=== PATIENT | female | born 1950 | race Caucasian/White ===

== ENCOUNTER 2024-11-13 07:43 | Inpatient (IN) | payer OTHER ==
[~2024-11-13] VITALS: Ht 154.9 cm; Wt 86.9 kg
[~2024-11-13 07:43] MED LIST: ATOR20TA50 PO; LEVO137T3 PO
--- NOTE | 2024-11-13 08:05 | ECG ---
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
[2024-11-13] MEDS: ADENOSINE 6 MG/2 ML INJ IV ONE ×2 (08:06→08:34)
[2024-11-13 08:13] LABS: Basophils # (auto) 0 10 ^3/uL (0-0.2); Basophils % (auto) 0.6 % (0.0-2.0); Eosinophils # (auto) 0.1 10 ^3/uL (0-0.8); Eosinophils % (auto) 0.8 % (0.0-7.0); Hematocrit 44.3 % (36.0-46.0); Hemoglobin 14.9 g/dL (12.2-16.2); Lymphocytes # (auto) 2.1 10 ^3/uL (0.4-5.4); Lymphocytes % (auto) 26.5 % (10.0-50.0); Mean Corpuscular Hgb Conc. 33.7 g/dL (32.0-36.0); Mean Corpuscular Volume 97.9 fL (80.0-100.0); Monocytes # (auto) 0.7 10 ^3/uL (0-1.3); Monocytes % (auto) 8.8 % (0.0-12.0); Neutrophils # (auto) 4.9 10 ^3/uL (1.6-8.6); Neutrophils % (auto) 63.3 % (37.0-80.0); Nucleated Red Blood Cells % 0.1 %; Platelet Count (auto) 201 10^3/uL (140-450); Red Blood Cells 4.52 10^6/uL (4.0-5.20); Red Cell Distribution Width 14.1 % (11.8-14.3); White Blood Cell 7.8 10^3/uL (4.4-10.8)
[2024-11-13 08:26] LABS: Albumin 4.5 g/dL (3.2-4.8); Alkaline Phosphatase 115 U/L (46-116); Anion Gap 10 (5-15); Calcium 9.3 mg/dL (8.7-10.4); Carbon Dioxide 25 mmol/L (20-31); Chloride 102 mmol/L (98-107); Sodium 137 mmol/L (136-145)
[2024-11-13 08:27] LABS: Bilirubin, Total 0.5 mg/dL (0.2-1.0)
[2024-11-13] MEDS: ALBUTEROL SULF 2.5 MG/0.5ML(0.5%) NEB SOLN NEB ONE (08:27)
[2024-11-13] MEDS: IPRATROPIUM BROM 0.5 MG/2.5ML INH SOL NEB ONE (08:28)
--- NOTE | 2024-11-13 08:28 | DVH ---
CHEST RADIOGRAPH Indication: CP Technique: Single frontal view of the chest was obtained Comparison: None FINDINGS: Lines and Tubes: None Lungs: No focal consolidation. Pleura: No effusion. No pneumothorax. Cardiomediastinal contours: Unremarkable Bones: No acute osseous abnormality. IMPRESSION: No acute cardiopulmonary disease.
[2024-11-13] MEDS: dilTIAZem 25 MG/5 ML VIAL IV ONE ×2 (08:30→08:34)
[2024-11-13 08:31] LABS: Alanine Aminotransferase 18 U/L (7-40); Aspartate Aminotransferase 46 U/L (13-40); Blood Urea Nitrogen 9 mg/dL (9-23); Glucose 143 mg/dL (74-106); Potassium 4.6 mmol/L (3.5-5.1)
[2024-11-13] MEDS: guaiFENesin 200 MG/10 ML UD ONE (08:34)
[2024-11-13] MEDS: guaiFENesin 200 MG/10 ML UD PO ONE ×2 (08:34→14:48)
[2024-11-13] MEDS: SODIUM CHLORIDE 0.9% 2,000 ML IV ONE (08:57)
--- NOTE | 2024-11-13 09:10 | ED.PDOC ---
HPI Comments 73 year old female presents to the ED with a chief complaint of chest pain onset 2 days. Patient states she has been experiencing chest pain, described as a tightness sensation for the past 2 days. Patient states she has also been experiencing cough, chills, fever for the past 2 days. Upon ED arrival, O2 sat was 90%, HR 200 BP 81/39, and rates her pain 9/10. PMHx asthma, thyroid. No other symptoms or modifying factors present at this time. 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 Family History Family History: Reviewed,noncontributory to illness, No family hx of Cancer, No family hx of DM, No family hx of Heart eb, No family hx of HTN, No family hx ofKidney be, No family hx of Liver eb, No family hx of Lung eb, No family hx of Stroke Social History Smoker: Non-Smoker Alcohol: Denies ETOH Use Drugs: Denies Drug Use Lives In: Home Constitutional: reports: fever; denies: chills, diaphoresis, fatigue, malaise, sweats, weakness, others EENTM: denies: blurred vision, double vision, ear bleeding, ear discharge, ear drainage, ear pain, ear ringing, eye pain, eye redness, hearing loss, mouth pain, mouth swelling, nasal discharge, nose bleeding, nose congestion, nose pain, photophobia, tearing, throat pain, throat swelling, voice changes, others Respiratory: reports: cough; denies: hemoptysis, orthopnea, SOB at rest, shortness of breath, SOB with excertion, stridor, wheezing, others Cardiovascular: reports: chest pain; denies: dizzy spells, diaphoresis, Dyspnea on exertion, edema, irregular heart beat, left arm pain, lightheadedness, palpitations, PND, syncope, others Gastrointestinal: denies: abdomen distended, abdominal pain, blood streaked bowels, constipated, diarrhea, dysphagia, difficulty swallowing, hematemesis, melena, nausea, poor appetite, poor fluid intake, rectal bleeding, rectal pain, vomiting, others Genitourinary: denies: abnormal vagina bleeding, burning, dyspareunia, dysuria, flank pain, frequency, hematuria, incontinence, pain, , vagina discharge, urgency, others Neurological: denies: dizziness, fainting, headache, left sided numbness, left sided weakness, numbness, paresthesia, pre-existing deficit, right sided numbness, right sided weakness, seizure, speech problems, tingling, tremors, weakness, others Musculoskeletal: denies: back pain, gout, joint pain, joint swelling, muscle pain, muscle stiffness, neck pain, others Integumetry: denies: bruises, change in color, change in hair/nails, dryness, laceration, lesions, lumps, rash, wounds, others Allergic/Immunocompromised: denies: Difficulty Healing, Frequent Infections, Hives, Itching, others Hematologic/Lymphatic: denies: anemia, blood clots, easy bleeding, easy bruising, swollen glands, others Endocrine: denies: excessive hunger, excessive sweating, excessive thirst, excessive urination, flushing, intolerance to cold, intolerance to heat, une xplained weight gain, unexplained weight loss, others Psychiatric: denies: anxiety, bipolar disorder, depression, hopeless, panic disorder, schizophrenia, sleepless, suicidal, others All Other Systems: Reviewed and Negative Physical Exam General Appearance: Moderate Distress HEENT: Normal ENT Inspection, PERRL/EOMI Neck: Full Range of Motion, Non-Tender, Normal, Normal Inspection Respiratory: Chest Non-Tender, Lungs Clear, No Accessory Muscle Use, No Respiratory Distress, Normal Breath Sounds, Wheezing, Other (PATIENT WITH PAROXYSMAL COUGH) Cardiovascular: No Edema, No Murmur, Tachycardia, Other (PATIENT WITH A PAROXYSMAL ATRIAL FIBRILLATION AT A VERY HIGH RATE) Breast Exam: Deferred Gastrointestinal: No Organomegaly, Non Tender, No Pulsatile Mass, Normal Bowel Sounds, Soft Genitalia: Deferred Pelvic: Deferred Rectal: Deferred Extremities: No calf tenderness, Normal capillary refill, Normal inspection, Normal range of motion, Non-tender, No pedal edema 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 Was a procedure done?: No CP Differential Dx Differential Diagnosis: A-fib, A-Flutter, Angina, Anxiety / Panic Attack, Electrolyte Disorder, Heart Failure, Hyperthyroidism, Hyperventilation, [place], PSVT, Pulmonary Embolus, Renal Failure, Ventricular Dysrhythmia Differential Diagnosis: CHF, HTN Essential Differential Diagnosis: Angina, Costochondritis, Esophageal reflux/spasm, Myocardial Infarction, Pneumonia, Pulmonary Embolus X-Ray, Labs, Meds, VS Vital Signs Date Time Temp Pulse Resp B/P (MAP) Pulse Ox O2 Delivery O2 Flow Rate FiO2 11/13/24 16:00 99.0 69 17 112/49 (70) 96 99.0 11/13/24 16:00 96 Nasal Cannula* 2 28 11/13/24 14:00 62 17 112/48 (69) 96 11/13/24 12:44 97 11/13/24 12:00 71 17 114/50 (71) 94 11/13/24 11:00 75 17 116/46 (69) 94 11/13/24 10:30 79 17 109/49 (69) 94 11/13/24 10:15 81 17 110/49 (69) 94 11/13/24 10:00 72 17 96 Nasal Cannula* 2 28 11/13/24 10:00 85 17 115/56 (75) 94 11/13/24 09:45 96 17 123/56 (78) 94 11/13/24 09:30 92 17 111/53 (72) 94 11/13/24 09:15 156 17 114/57 (76) 94 11/13/24 09:00 157 17 113/56 (75) 94 11/13/24 08:45 159 17 72/47 (55) 94 11/13/24 08:35 98.0 155 22 90/52 (65) 94 98.0 11/13/24 08:28 17 97 Nasal Cannula* 1 24 11/13/24 08:11 98.5 200 28 81/39 (53) 90 11/13/24 08:04 197 11/13/24 07:50 202 Lab Test 11/13/24 10:53 11/13/24 08:52 11/13/24 07:54 Range/Units Troponin I High Sensitivity 389 *H 57 *H 25 </=34 ng/L White Blood Count 7.8 4.4-10.8 10^3/uL Red Blood Count 4.52 4.0-5.20 10^6/uL Hemoglobin 14.9 12.2-16.2 g/dL Hematocrit 44.3 36.0-46.0 % Mean Corpuscular Volume 97.9 80.0-100.0 fL Mean Corpuscular Hemoglobin 33.0 H 28.0-32.0 pg Mean Corpuscular Hemoglobin Concent 33.7 32.0-36.0 g/dL Red Cell Distribution Width 14.1 11.8-14.3 % Platelet Count 201 140-450 10^3/uL Mean Platelet Volume 8.8 6.9-10.8 fL Neutrophils (%) (Auto) 63.3 37.0-80.0 % Lymphocytes (%) (Auto) 26.5 10.0-50.0 % Monocytes (%) (Auto) 8.8 0.0-12.0 % Eosinophils (%) (Auto) 0.8 0.0-7.0 % Basophils (%) (Auto) 0.6 0.0-2.0 % Neutrophils # (Auto) 4.9 1.6-8.6 10 ^3/uL Lymphocytes # (Auto) 2.1 0.4-5.4 10 ^3/uL Monocytes # (Auto) 0.7 0-1.3 10 ^3/uL Eosinophils # (Auto) 0.1 0-0.8 10 ^3/uL Basophils # (Auto) 0 0-0.2 10 ^3/uL Nucleated Red Blood Cells 0.1 % D-Dimer, Quantitative 0.41 0.0-0.49 mg/L FEU Sodium Level 137 136-145 mmol/L Potassium Level 4.6 3.5-5.1 mmol/L Chloride Level 102 98-107 mmol/L Carbon Dioxide Level 25 20-31 mmol/L Anion Gap 10 5-15 Blood Urea Nitrogen 9 9-23 mg/dL Creatinine 1.13 H 0.550-1.02 mg/dL Glomerular Filtration Rate Calc 51 >90 mL/min BUN/Creatinine Ratio 8.0 L 10.0-20.0 Serum Glucose 143 H 74-106 mg/dL Hemoglobin A1c Pending Calcium Level 9.3 8.7-10.4 mg/dL Magnesium Level 1.9 1.6-2.6 mg/dL Total Bilirubin 0.5 0.2-1.0 mg/dL Aspartate Amino Transferase (AST) 46 H 13-40 U/L Alanine Aminotransferase (ALT) 18 7-40 U/L Alkaline Phosphatase 115 46-116 U/L B-Type Natriuretic Peptide Pending Total Protein 7.0 5.7-8.2 g/dL Albumin 4.5 3.2-4.8 g/dL Triglycerides Level 132 < 150 mg/dL Cholesterol Level 135 < 200 mg/dL LDL Cholesterol 62 < 100 mg/dL HDL Cholesterol 55 40-59 mg/dL Thyroid Stimulating Hormone (TSH) 3.24 0.55-4.78 uIU/mL Current Medications Medications (Trade) Dose Ordered Sig/Amita Route Start Time Stop Time Status Last Admin Albuterol (Ventolin Medneb) 2.5 mg ONCE ONCE NEB 11/13/24 08:30 11/13/24 08:31 DC 11/13/24 08:27 Ipratropium [place] (Atrovent Medneb) 0.5 mg ONCE ONCE NEB 11/13/24 08:30 11/13/24 08:31 DC 11/13/24 08:28 Guaifenesin (Robitussin Plain Liquid) 400 mg ONCE ONCE PO 11/13/24 08:30 11/13/24 08:31 DC 11/13/24 08:34 Adenosine (Adenosine) 6 mg ONCE ONCE IV 11/13/24 08:30 11/13/24 08:31 DC 11/13/24 08:06 Sodium Chloride 2,000 ml @ 1,000 mls/hr Q2H ONCE IV 11/13/24 08:45 11/13/24 10:44 DC 11/13/24 08:57 Guaifenesin (Robitussin Plain Liquid) 200 mg ONCE ONCE PO 11/13/24 14:45 11/13/24 14:46 DC 11/13/24 14:48 Aspirin 162 mg ONCE ONCE PO 11/13/24 15:00 11/13/24 15:29 DC 11/13/24 15:54 Sodium Chloride 1,000 ml @ 60 mls/hr [id number] IV 11/13/24 15:00 11/13/24 15:00 Acetaminophen (Tylenol Tablet) 650 mg Q6HP PRN PO 11/13/24 15:00 11/13/24 15:54 [place] [id number] Ph: [phone] DIAGNOSTIC IMAGING Diagnostic Imaging Report : [id number] Signed PATIENT: YELITZA DE SANTIAGOACCT: [id number] UNIT: [id number] : 1950 LOC: ER ROOM / BED: / AGE / SEX: 73 / F ADM STATUS: REG ER SERVICE 0753 ORDERING PHYSICIAN: JAGRUTI PINEDO MD PROCEDURE(s): CXRP - CHEST PORTABLE REASON: CP ORDER NUMBER(s): [id number], ACCESSION NUMBER(s): [id number] CHEST RADIOGRAPH Indication: CP Technique: Single frontal view of the chest was obtained Comparison: None FINDINGS: Lines and Tubes: None Lungs: No focal consolidation. Pleura: No effusion. No pneumothorax. Cardiomediastinal contours: Unremarkable Bones: No acute osseous abnormality. IMPRESSION: No acute cardiopulmonary disease. ATED BY: LAKESHIA AVILEZ MD DICTATED DATE/TIME: 11/13/24825 SIGNED BY: LAKESHIA AVILEZ MD SIGNED DATE/TIME: 11/13/24825 CC: X-Ray, Labs, Meds, VS Comment COURSE IN THE EMERGENCY DEPARTMENT SEVERE TACHYCARDIA AND HYPOTENSION EKG SHOWS PAROXYSMAL SVT AT 202 WITH A DIFFUSE ISCHEMIC CHANGES THE CHEST X-RAY IS NORMAL CBC NORMAL CMP GFR AT 51 WITH A BLOOD SUGAR OF 153 TSH 3.24 D-DIMER 0.41 TROPONIN 20 FIVES 57 AND 389 PATIENT WILL BE ADMITTED NON TRANSFERRABLE I SPOKE TO DR. MARCH AT [facility] AND WILL ADMIT THE PATIENT AT THIS INSTITUTION SPENT ABOUT 45 MINUTES FOR THIS PATIENT IS AT BEDSIDE Time of 1ST Reevaluation: 08:50 Reevaluation 1ST: Unchanged Time of 2ND Reevaluation: 13:39 Reevaluation 2ND: Improved Patient Education/Counseling: Diagnosis, Treatment, Prognosis Family Education/Counseling: Diagnosis, Treatment, Prognosis, No Family Present Additional Information The following tests were ordered, and results were reviewed by me: EKG -x3, CBC, CMP, TROP -x3, XY CHEST, THYROID STIMULATING HORMONE, D-DIMER I reviewed and agreed with the following test results read by other providers: XY CHEST I discussed treatment and results with medical personnel and patient Departure 1 Departure Time of Disposition: 13:41 Impression: Primary Impression: Paroxysmal atrial fibrillation Additional Impressions: Ischemic heart disease Acute coronary syndrome CKD (chronic kidney disease) stage 3, GFR 30-59 ml/min Hyperglycemia Ruled Out: Pulmonary embolism, Hyperthyroidism Disposition: ADMITTED INPATIENT Admit to: Tele Condition: Serious Critical Care Note Critical Care Time?: No Stability Stability form required: Yes Comments 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 [id number] AUTHORIZATION DONE BY DR. MARCH Unstable for transfer: Telemetry monitoring (Telemetry monitoring required) Heart Score Heart Score: Heart Score Response (Comments) Value History Highly Suspicious [address]-Deviation 2 Age >65 2 Risk Factors >3 or Hx ASHD 2 Troponin >3 x's Normal limit 2 Total 10 I personally scribed for JAGRUTI PINEDO MD ([email or web address]) on 11/13/24 at 09:10. Electronically submitted by Aurora Powell ([email or web address]). I personally scribed for JAGRUTI PINEDO MD ([email or web address]) on 11/13/24 at 09:59. Electronically submitted by Aurora Powell ([email or web address]). I personally scribed for JAGRUTI PINEDO MD ([email or web address]) on 11/13/24 at 09:59. Electronically submitted by Aurora Powell ([email or web address]). JAGRUTI PINEDO MD Nov 13, 2024 09:10
--- NOTE | 2024-11-13 09:28 | ECG ---
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
[2024-11-13 10:00] VITALS: PULSE 72; RESP 17; O2SAT 96
[2024-11-13] MEDS ORDERED: ONDANSETRON HCL 4 MG/2 ML VIAL IV PRN (15:00)
[2024-11-13] MEDS ORDERED: DOCUSATE SOD 100 MG CAP PO PRN (15:00)
[2024-11-13] MEDS: SODIUM CHLORIDE 0.9% 1,000 ML IV SCH (15:00)
[2024-11-13] MEDS ORDERED: ALBUTEROL SULF 2.5 MG/0.5ML(0.5%) NEB SOLN NEB PRN (15:00)
[2024-11-13] MEDS ORDERED: IPRATROPIUM BROM 0.5 MG/2.5ML INH SOL NEB PRN (15:00)
[2024-11-13] MEDS: ACETAMINOPHEN 325 MG TAB PO PRN (15:54)
[2024-11-13] MEDS: ASPirin 81 mg TAB PO ONE (15:54)
--- NOTE | 2024-11-13 16:14 | DVHHP2 ---
History of Present Illness Reason for Visit: Palpitations History of Present Illness The patient is a 73-year-old female with past medical history of thyroid disease and asthma presented to [facility] ED with complaint chest pain. Patient reports symptoms progressively get worse with substernal chest pain, described as tightness sensation, rating 6/10 numeric scale, nonproductive cough, chills, fever for 2 days, getting worse that prompted this visit. Patient was seen and evaluated in the ED, laboratory data shows WBC 7.6, platelets 201, sodium 137, potassium 4.6, BUN 9, creatinine 1.13, GFR 51, glucose 143, AST 46, ALT 18, troponin 389, TSH 3.24, blood pressure 81/39 trending up to 112/49, heart rate 202 trending down to 62, temperature 98.0 F, O2 saturation 94% on oxygen. Patient was given adenosine 6 mg IV, please see medication orders section in the computer. On my assessment, patient denied chest pain no dizziness, no headache no diaphoresis, currently on oxygen, no nausea, vomiting, no fever, no chills. Patient was admitted for further evaluation and medical management. Past Medical History Asthma, Thyroid Past Surgical History Hernia Repair Family History Reviewed, noncontributory to the management of this case. Past Social History The patient lives at home, denies smoking, alcohol or illicit drugs abuse. Review of Systems Constitutional: Yes: Chills; No: Fever, Sweats, Weakness, Malaise, Other Eyes: No: Pain, Vision change, Conjunctivae inflammation, Eyelid inflammation, Other, Redness ENT: No: Ear pain, Ear discharge, Nose pain, Nose discharge, Nose congestion, Mouth pain, Mouth swelling, Throat pain, Throat swelling, Other Respiratory: Cough; No: Dry, Shortness of breath, SOB with excertion, Wheezing, Hemoptysis, Pleuritic Pain, Sputum, Wheezing, Other Cardiovascular: Chest Pain, Palpitations; No: Orthopnea, Paroxysmal Noc. Dyspnea, Edema, Lt Headedness, Other Gastrointestinal: No: Nausea, Vomiting, Abdominal Pain, Diarrhea, Constipation, Melena, Hematochezia, Other Genitourinary: No Dysuria, No Frequency, No Incontinence, No Hematuria, No Retention, No Other Musculoskeletal: No: other, neck pain, shoulder pain, arm pain, back pain, hand pain, leg pain, foot pain Skin: No: Rash, Lesions, Jaundice, Bruising, Other Neurological: No: Weakness, Numbness, Incoordination, Change in speech, Confusion, Seizures, Other Allergies: Coded Allergies: Codeine (Verified Allergy, Mild, 11/13/24) Medications Current Medications Medications Dose Ordered Sig/Amita Route Start Time Stop Time Status Last Admin Dose Admin Albuterol 2.5 mg Q4HPRN PRN NEB 11/13/24 15:00 Ipratropium [place] 0.5 mg Q4HPRN PRN NEB 11/13/24 15:00 Diltiazem HCl 120 mg DAILY PO 11/14/24 10:00 Levothyroxine Sodium 25 mcg QAM@0600 PO 11/14/24 06:00 Aspirin 81 mg DAILY PO 11/14/24 10:00 Atorvastatin Calcium 20 mg HS PO 11/13/24 22:00 Sodium Chloride 1,000 ml @ 60 mls/hr [id number] IV 11/13/24 15:00 11/13/24 15:00 60 MLS/HR Ondansetron HCl 4 mg Q4HP PRN IV 11/13/24 15:00 Docusate Sodium 100 mg BIDPRN PRN PO 11/13/24 15:00 Acetaminophen 650 mg Q6HP PRN PO 11/13/24 15:00 11/13/24 15:54 650 MG Levothyroxine Sodium 112 mcg QAM@0600 PO 11/14/24 06:00 Exam Vital Signs Vital Signs Date Time Temp Pulse Resp B/P (MAP) Pulse Ox O2 Delivery O2 Flow Rate FiO2 11/13/24 16:00 99.0 69 17 112/49 (70) 96 99.0 11/13/24 16:00 Nasal Cannula* 2 28 General Appearance: Alert, Oriented X3, Cooperative, No acute distress HEENT: Atraumatic, PERRLA, EOMI, Mucous membr. moist/pink Respiratory: Clear to auscultation, Normal air movement Cardiovascular: Regular rate, Normal S1, Normal S2, No murmurs Abdominal: Normal bowel sounds, Soft, No tenderness, No hepatospenomegaly, No masses Extremities: No clubbing, No cyanosis, No edema, Normal pulses, No tenderness/swelling Skin: No rashes, No breakdown, No significant lesion Neuro: Normal speech, Normal tone, Sensation intact, Cranial nerves 3-12 NL, Reflexes 2+, Other (Generalized weakness) Psych/Mental Status: Mental status NL, Mood NL Labs/Xrays Labs Test 11/13/24 10:53 11/13/24 07:54 Range/Units Troponin I High Sensitivity 389 *H </=34 ng/L White Blood Count 7.8 4.4-10.8 10^3/uL Red Blood Count 4.52 4.0-5.20 10^6/uL Hemoglobin 14.9 12.2-16.2 g/dL Hematocrit 44.3 36.0-46.0 % Mean Corpuscular Volume 97.9 80.0-100.0 fL Mean Corpuscular Hemoglobin 33.0 H 28.0-32.0 pg Mean Corpuscular Hemoglobin Concent 33.7 32.0-36.0 g/dL Red Cell Distribution Width 14.1 11.8-14.3 % Platelet Count 201 140-450 10^3/uL Mean Platelet Volume 8.8 6.9-10.8 fL Neutrophils (%) (Auto) 63.3 37.0-80.0 % Lymphocytes (%) (Auto) 26.5 10.0-50.0 % Monocytes (%) (Auto) 8.8 0.0-12.0 % Eosinophils (%) (Auto) 0.8 0.0-7.0 % Basophils (%) (Auto) 0.6 0.0-2.0 % Neutrophils # (Auto) 4.9 1.6-8.6 10 ^3/uL Lymphocytes # (Auto) 2.1 0.4-5.4 10 ^3/uL Monocytes # (Auto) 0.7 0-1.3 10 ^3/uL Eosinophils # (Auto) 0.1 0-0.8 10 ^3/uL Basophils # (Auto) 0 0-0.2 10 ^3/uL Nucleated Red Blood Cells 0.1 % D-Dimer, Quantitative 0.41 0.0-0.49 mg/L FEU Sodium Level 137 136-145 mmol/L Potassium Level 4.6 3.5-5.1 mmol/L Chloride Level 102 98-107 mmol/L Carbon Dioxide Level 25 20-31 mmol/L Anion Gap 10 5-15 Blood Urea Nitrogen 9 9-23 mg/dL Creatinine 1.13 H 0.550-1.02 mg/dL Glomerular Filtration Rate Calc 51 >90 mL/min BUN/Creatinine Ratio 8.0 L 10.0-20.0 Serum Glucose 143 H 74-106 mg/dL Calcium Level 9.3 8.7-10.4 mg/dL Total Bilirubin 0.5 0.2-1.0 mg/dL Aspartate Amino Transferase (AST) 46 H 13-40 U/L Alanine Aminotransferase (ALT) 18 7-40 U/L Alkaline Phosphatase 115 46-116 U/L Total Protein 7.0 5.7-8.2 g/dL Albumin 4.5 3.2-4.8 g/dL Thyroid Stimulating Hormone (TSH) 3.24 0.55-4.78 uIU/mL PATIENT: COLETTE DE SANTIAGOT: [id number] UNIT: [id number] : 1950 LOC: ER ROOM / BED: / AGE / SEX: 73 / F ADM STATUS: REG ER SERVICE 0753 ORDERING PHYSICIAN: JAGURTI PINEDO MD PROCEDURE(s): CXRP - CHEST PORTABLE REASON: CP ORDER NUMBER(s): [id number], ACCESSION NUMBER(s): [id number] CHEST RADIOGRAPH Indication: CP Technique: Single frontal view of the chest was obtained Comparison: None FINDINGS: Lines and Tubes: None Lungs: No focal consolidation. Pleura: No effusion. No pneumothorax. Cardiomediastinal contours: Unremarkable Bones: No acute osseous abnormality. IMPRESSION: No acute cardiopulmonary disease. Assessment/Plan Assessment/Plan Paroxysmal atrial fibrillation Hyperglycemia Elevated troponin Ischemic heart disease Acute coronary syndrome CKD (chronic kidney disease) Plan 1. Admit to telemetry unit 2. Breathing treatment 3. Pain control management 4. Management of fluids and electrolytes 5. Consultation for Cardiology 6. Diagnostic tests chest x-ray 7. DVT prophylaxis-on aspirin 8. Repeat labs CBC, CMP in a.m. 9. Continue with current medical management 10. Treatment plan discussed with patient and RN. Patient verbalized understanding. Plan discussed with: Patient, Other (RN) My Orders Orders - RENE HEBERT DNP Procedure Category Date Status Time * Cardiology Consult CONS 11/13/24 Transmitted 14:54 Albuterol Medneb PHA 11/13/24 In Process (Ventolin Medneb) 15:00 Ipratropium Medneb PHA 11/13/24 In Process (Atrovent Medneb) 15:00 Diltiazem Er Capsule PHA 11/14/24 In Process (Cardizem Er Capsul 10:00 Levothyroxine Tablet PHA 11/14/24 In Process (Synthroid Tablet) 06:00 Aspirin Tablet PHA 11/14/24 In Process 10:00 Atorvastatin (Lipitor) PHA 11/13/24 In Process 22:00 Troponin-I Hs LAB 11/13/24 Logged 16:00 Allergies ANGELI 11/13/24 In Process 14:54 Code Status CODE 11/13/24 Transmitted 14:54 Sodium Chloride 0.9% PHA 11/13/24 In Process 15:00 Oxygen Per Hour RT 11/13/24 Transmitted 14:54 Ondansetron Hcl PHA 11/13/24 In Process (Zofran) 15:00 Docusate Sodium PHA 11/13/24 In Process Capsule (Colace 15:00 Fall Risk Precautions ANGELI 11/13/[address] 14:54 Complete Blood Count LAB 11/14/24 Verified 04:00 Comprehensive LAB 11/14/24 Verified Metabolic Panel 04:00 Cardiac DIET 11/13/24 Transmitted Diet-2gna,Lofat,Lochol Dinner Condition: Serious ANGELI 11/13/24 In Process 14:54 Acetaminophen Tablet PHA 11/13/24 In Process (Tylenol Tablet) 15:00 Sequential ANGELI 11/13/24 In Process Compression Device Levothyroxine Tablet PHA 11/14/24 In Process (Synthroid Tablet) 06:00 Problem List: (1) Paroxysmal atrial fibrillation (2) Acute coronary syndrome (3) Ischemic heart disease (4) Hyperglycemia (5) Elevated troponin (6) Chronic kidney disease (CKD) Date of Service: Nov 13, 2024 Billing Provider: RENE HEBERT DNP Common Visit Codes: [id number] INP/OBS CARE (HIGH) RENE HEBERT DNP Nov 13, 2024 16:14
[2024-11-13] MEDS ORDERED: MORPHINE SULFATE INJ 2 MG/ml SYRG IV PRN (16:15)
[2024-11-13] MEDS ORDERED: NITROGLYCERIN 0.4 MG SL TAB SL PRN (16:15)
--- NOTE | 2024-11-13 17:20 | DVHINCON2 ---
Date Seen: Nov 13, 2024 Referring Physician JEANNETTE Pizarro Reason for Consultation Palpitations History of Present Illness This is a pleasant 73 year old female who presented to the emergency room with a chief complaint of chest pain for two days. Patient reports she developed a persistent nonproductive cough which prompted her to intake a couple of cough drops and soon after developing chest pain described as substernal, tightness like, nonradiating, intermittent, and associated with some dizziness. She called [facility] who advised her to call poison control. Given persistence of symptoms she presented to the emergency room for further evaluation. Upon arrival she underwent a 12-lead electrocardiogram revealing a supraventricular tachycardia rhythm with a rate at 202 bpm and an associated systolic blood pressure in the 80s mmHg. She was treated with adenosine 6 mg IV x1 with successful transition into a sinus rhythm. Post conversion a 12-lead electrocardiogram revealed a sinus rhythm with an associated right bundle branch block and ST segment depression to lead III and AVF. She denies any further cardiac symptoms. Family history includes mother with a permanent pacemaker. Significant medical history includes total thyroidectomy in 2003, dyslipidemia, asthma, and obesity. Past Medical History Past medical history reviewed. No other significant than mentioned above. Past Surgical History Total thyroidectomy in 2003 Hernia repair Family History Family history reviewed. Mother with permanent pacemaker. Social History Denies the use of illicit drugs, alcohol, or tobacco use. Allergies: Coded Allergies: Codeine (Verified Allergy, Mild, 11/13/24) Home Meds Home medications reviewed. Current Medications Current Medications Medications (Trade) Dose Ordered Sig/Amita Route PRN Reason Start Time Stop Time Status Last Admin Albuterol (Ventolin Medneb) 2.5 mg Q4HPRN PRN NEB SHORTNESS OF BREATH 11/13/24 15:00 Ipratropium [place] (Atrovent Medneb) 0.5 mg Q4HPRN PRN NEB SHORTNESS OF BREATH 11/13/24 15:00 Diltiazem HCl (Cardizem ER Capsule) 120 mg DAILY PO 11/14/24 10:00 Levothyroxine Sodium (Synthroid Tablet) 25 mcg QAM@0600 PO 11/14/24 06:00 Aspirin 81 mg DAILY PO 11/14/24 10:00 Atorvastatin Calcium (Lipitor) 20 mg HS PO 11/13/24 22:00 Sodium Chloride 1,000 ml @ 60 mls/hr [id number] IV 11/13/24 15:00 11/13/24 15:00 Ondansetron HCl (Zofran) 4 mg Q4HP PRN IV NAUSEA / VOMITING 11/13/24 15:00 Docusate Sodium (Colace Capsule) 100 mg BIDPRN PRN PO FOR CONSTIPATION 11/13/24 15:00 Acetaminophen (Tylenol Tablet) 650 mg Q6HP PRN PO PAIN SCALE 1-3 OR TEMP>100.4 11/13/24 15:00 11/13/24 15:54 Levothyroxine Sodium (Synthroid Tablet) 112 mcg QAM@0600 PO 11/14/24 06:00 Nitroglycerin (Ntrostat Sublingual) 0.4 mg Q5MINP PRN SL FOR CHEST PAIN 11/13/24 16:15 Morphine Sulfate 2 mg Q30M PRN IV FOR CHEST PAIN 11/13/24 16:15 Hold Enoxaparin Sodium (Lovenox) 40 mg DAILY SC 11/14/24 10:00 UNV Review of Systems Constitutional: No symptom reported Ears, Nose, & Throat: No symptom reported Eyes: No symptom reported Neurological: Dizziness Pulmonary/Respiratory: Nonproductive cough Cardiovascular: Chest pain Gastrointestinal: No symptom reported Genitourinary: No symptom reported Musculoskeletal: No symptom reported Skin: No symptom reported Psychiatric: No symptom reported Endocrine: No symptom reported Hemotologic/Lymphatic: No symptom reported Vital Signs Vital Signs Date Time Temp Pulse Resp B/P (MAP) Pulse Ox O2 Delivery O2 Flow Rate FiO2 11/13/24 16:00 99.0 69 17 112/49 (70) 96 99.0 11/13/24 16:00 Nasal Cannula* 2 28 Physical Exam General Appearance: Cooperative. Well developed. Obese. In no acute distress Head Exam: Normal inspection Neck Exam: Normal inspection. Non-tender. Normal alignment Pulmonary/Respiratory: Chest non-tender. Clear bilateral breath sounds Cardiovascular/Chest: Regular rate and rhythm. S1, S2. Sinus rhythm with RBBB and ST depression to lead three and AVF. No murmurs. No JVD. Peripheral Pulses: 2+ Radial (R). 2+ Radial (L). 2+ Pedal (R). 2+ Pedal (L) Abdominal Exam: Normal bowel sounds. Soft. Nontender. No hepatospenomegaly. No masses Ankle Exam: Negative ankle edema Lower extremities: Negative lower extremity edema Neuro/Mental Status: A&O x4. Coherent Thoughts/Psych: Normal thought pattern. Appropriate mood and affect. Good roselyn gement and insight Appearance: In no acute distress Skin Exam: Normal inspection. Normal color. Warm. Dry Labs/Diagnostic Data Labs Test 11/13/24 10:53 11/13/24 07:54 Range/Units Troponin I High Sensitivity 389 *H </=34 ng/L White Blood Count 7.8 4.4-10.8 10^3/uL Red Blood Count 4.52 4.0-5.20 10^6/uL Hemoglobin 14.9 12.2-16.2 g/dL Hematocrit 44.3 36.0-46.0 % Mean Corpuscular Volume 97.9 80.0-100.0 fL Mean Corpuscular Hemoglobin 33.0 H 28.0-32.0 pg Mean Corpuscular Hemoglobin Concent 33.7 32.0-36.0 g/dL Red Cell Distribution Width 14.1 11.8-14.3 % Platelet Count 201 140-450 10^3/uL Mean Platelet Volume 8.8 6.9-10.8 fL Neutrophils (%) (Auto) 63.3 37.0-80.0 % Lymphocytes (%) (Auto) 26.5 10.0-50.0 % Monocytes (%) (Auto) 8.8 0.0-12.0 % Eosinophils (%) (Auto) 0.8 0.0-7.0 % Basophils (%) (Auto) 0.6 0.0-2.0 % Neutrophils # (Auto) 4.9 1.6-8.6 10 ^3/uL Lymphocytes # (Auto) 2.1 0.4-5.4 10 ^3/uL Monocytes # (Auto) 0.7 0-1.3 10 ^3/uL Eosinophils # (Auto) 0.1 0-0.8 10 ^3/uL Basophils # (Auto) 0 0-0.2 10 ^3/uL Nucleated Red Blood Cells 0.1 % D-Dimer, Quantitative 0.41 0.0-0.49 mg/L FEU Sodium Level 137 136-145 mmol/L Potassium Level 4.6 3.5-5.1 mmol/L Chloride Level 102 98-107 mmol/L Carbon Dioxide Level 25 20-31 mmol/L Anion Gap 10 5-15 Blood Urea Nitrogen 9 9-23 mg/dL Creatinine 1.13 H 0.550-1.02 mg/dL Glomerular Filtration Rate Calc 51 >90 mL/min BUN/Creatinine Ratio 8.0 L 10.0-20.0 Serum Glucose 143 H 74-106 mg/dL Calcium Level 9.3 8.7-10.4 mg/dL Total Bilirubin 0.5 0.2-1.0 mg/dL Aspartate Amino Transferase (AST) 46 H 13-40 U/L Alanine Aminotransferase (ALT) 18 7-40 U/L Alkaline Phosphatase 115 46-116 U/L Total Protein 7.0 5.7-8.2 g/dL Albumin 4.5 3.2-4.8 g/dL Thyroid Stimulating Hormone (TSH) 3.24 0.55-4.78 uIU/mL Assessment Non-ST elevation Myocardial Infarction, questionable Type I Supraventricular tachycardia s/p chemical cardioversion Rule out structural heart disease/coronary artery disease Hx of total thyroidectomy Dyslipidemia Asthma Obesity Plan/Recommendation (Dr. Reyes) The patient with supraventricular tachycardia and successful chemical cardioversion will undergo a transthoracic echocardiogram to evaluate cardiac function. Tentatively scheduled for a Cardiolite stress test in the setting of negative influenza/COVID 19 tests. In the meantime, initiate metoprolol XL, single-antiplatelet therapy, lipid-lowering agent, and therapeutic Lovenox given trending troponin levels. TSH levels WNL. Mg level pending at this time. Monitor ECG changes closely and notify. Thank you for allowing us to participate in this patient's care. Please call if you have any questions or concerns. This medical document was created using an electronic medical record system with voice recognition software and computerized dictation system. Although this document has been carefully reviewed, there might still be some phonetic and typographical errors. Occasional wrong-word or ``sound-alike substitutions may have occurred due to the inherent limitations of voice recognition software. These areas are purely typographical due to imperfections of the software programs and do not reflect any compromise in the patient's medical care. Please read the chart carefully and recognize, using context, where these substitutions have occurred. Plan discussed with: Patient, Other NYHA Physical activity limitations: NA Date of Service: Nov 13, 2024 Billing Provider: JOSE DALTON Cardiology Common Codes: [id number] INP/OBS CARE (High) JOSE DALTON Nov 13, 2024 17:20
[2024-11-13 17:37] LABS: Magnesium 1.9 mg/dL (1.6-2.6)
[2024-11-13] MEDS: ENOXAPARIN SOD 40 MG/0.4 ML SYRINGE SC ONE (17:38)
[2024-11-13 21:17] LABS: Rapid Influenza A Negative (Negative); Rapid Influenza B Negative (Negative)
[2024-11-13 21:23] LABS: COVID19 ANTIGEN SOFIA FIA POSITIVE (NEGATIVE)
[2024-11-13 21:38] VITALS: O2SAT 95
[2024-11-13] MEDS: ATORVASTATIN 20 MG TAB PO SCH (22:06)
[2024-11-13] MEDS: ENOXAPARIN SOD 100 MG/1 ML SYRINGE SC SCH (22:06)
[2024-11-13 22:18] VITALS: BP 119/47; PULSE 61; RESP 18; TEMP 99; O2SAT 95
[2024-11-13] MEDS ORDERED: HEPARIN DRIP/D5W 100UNITS/ML 250 ML IV SCH (22:30)
[2024-11-13 23:00] LABS: INR 1.25 (0.9-1.15); Partial Thromboplastin Time 36.5 SEC (24.5-34.5)
[2024-11-13 23:02] VITALS: BP 116/82; PULSE 63; RESP 16; RESP 18; TEMP 98.1; O2SAT 95
[2024-11-14] VITALS (9 sets, daily range): BP systolic 108–138; BP diastolic 51–64; PULSE 53–74; RESP 18–20; TEMP 98.5–98.9; O2SAT 91–98
[2024-11-14] MEDS: guaiFENesin-DM 100/10mg/5ml SYR PO PRN (00:41)
[2024-11-14] MEDS: fentaNYL Drip 2500mCg/250mlNS 250 ML IV ONE (03:09)
[2024-11-14] MEDS: MIDAZOLAM DRIP 50 mg/50mL 50 ML IV ONE (03:09)
[2024-11-14] MEDS: NOREPINEPHRINE 8 MG/250ML KIT 250 ML IV ONE (03:09)
[2024-11-14] MEDS: LEVOTHYROXINE SODIUM 25 MCG TAB PO SCH (06:00)
[2024-11-14] MEDS: LEVOTHYROXINE SODIUM 112 MCG TAB PO SCH (06:00)
--- NOTE | 2024-11-14 07:57 | DVHPN2 ---
Consult Progress Note Date Seen: Nov 14, 2024 Subjective Review of Systems: CVS:Normal, RESPIRATORY:Abnormal, NEURO:Normal Other Systems: Denies any active cardiac complains. C/o non-productive cough Objective vital signs Vital Sign Date Time Temp Pulse Resp B/P (MAP) Pulse Ox O2 Delivery O2 Flow Rate FiO2 11/14/24 05:00 98.7 62 19 130/57 (81) 91 98.7 11/13/24 23:02 Nasal Cannula* 2 28 Total Intake and Output 11/13/24 11/13/24 11/14/24 15:00 23:00 07:00 Intake Total 2000 ml 180 ml 0 ml Output Total 850 ml Balance 2000 ml 180 ml -850 ml medications Current Medications Medications Dose Ordered Sig/Amita Route Start Time Stop Time Status Last Admin Dose Admin Albuterol 2.5 mg Q4HPRN PRN NEB 11/13/24 15:00 Ipratropium [place] 0.5 mg Q4HPRN PRN NEB 11/13/24 15:00 Levothyroxine Sodium 25 mcg QAM@0600 PO 11/14/24 06:00 Aspirin 81 mg DAILY PO 11/14/24 10:00 Atorvastatin Calcium 20 mg HS PO 11/13/24 22:00 11/13/24 22:06 20 MG Sodium Chloride 1,000 ml @ 60 mls/hr [id number] IV 11/13/24 15:00 11/13/24 15:00 60 MLS/HR Ondansetron HCl 4 mg Q4HP PRN IV 11/13/24 15:00 Docusate Sodium 100 mg BIDPRN PRN PO 11/13/24 15:00 Acetaminophen 650 mg Q6HP PRN PO 11/13/24 15:00 11/13/24 15:54 650 MG Levothyroxine Sodium 112 mcg QAM@0600 PO 11/14/24 06:00 Nitroglycerin 0.4 mg Q5MINP PRN SL 11/13/24 16:15 Morphine Sulfate 2 mg Q30M PRN IV 11/13/24 16:15 Hold Enoxaparin Sodium 80 mg Q12HR SC 11/13/24 22:00 11/13/24 22:06 80 MG Guaifenesin/ Dextromethorphan 10 ml Q6HR PRN PO 11/14/24 00:15 11/14/24 00:41 10 ML Examination: LUNGS:Normal, CVS:Normal (NSR), NEURO:Normal laboratory and microbiology Laboratory Tests 11/13/24 07:54 Test 11/13/24 07:54 Range/Units Serum Glucose 143 H 74-106 mg/dL Problem List/Assessment/Plan Problem List/Assessment/Plan Non-ST elevation Myocardial Infarction, questionable Type I Supraventricular tachycardia s/p chemical cardioversion Rule out structural heart disease/coronary artery disease Active COVID-19 virus Hx of total thyroidectomy Pre-diabetes, newly diagnosed Dyslipidemia Asthma Obesity Plan/Recommendation (Dr. Guo) The patient with supraventricular tachycardia and successful chemical cardioversion will undergo a transthoracic echocardiogram to evaluate cardiac function. Cardiolite stress test cancelled given active COVID-19. Continue metoprolol XL, single-antiplatelet therapy, lipid-lowering agent, and therapeutic Lovenox given trending troponin levels. TSH levels WNL. Morning blood levels pending at this time. Monitor ECG changes closely and notify. Thank you for allowing us to participate in this patient's care. Please call if you have any questions or concerns. This medical document was created using an electronic medical record system with voice recognition software and computerized dictation system. Although this document has been carefully reviewed, there might still be some phonetic and typographical errors. Occasional wrong-word or ``sound-alike substitutions may have occurred due to the inherent limitations of voice recognition software. These areas are purely typographical due to imperfections of the software programs and do not reflect any compromise in the patient's medical care. Please read the chart carefully and recognize, using context, where these substitutions have occurred. Plan discussed with: Patient, Other Date of Service: Nov 14, 2024 Billing Provider: JOSE DALTON Cardiology Common Codes: [id number] [facility] JOSE DALTON Nov 14, 2024 07:57
[2024-11-14] MEDS ORDERED: guaiFENesin 200 MG/10 ML UD GT PRN (08:00)
[2024-11-14] MEDS ORDERED: guaiFENesin 200 MG/10 ML UD GT ONE (08:00)
[2024-11-14] MEDS: METOPROLOL SUCCINATE XL 50 MG TAB PO SCH (09:50)
[2024-11-14] MEDS: ASPirin 81 mg TAB PO SCH (09:52)
[2024-11-14] MEDS ORDERED: ENOXAPARIN SOD 40 MG/0.4 ML SYRINGE SC SCH (10:00)
[2024-11-14] MEDS ORDERED: dilTIAZem 120MG ER CAP PO SCH (10:00)
--- NOTE | 2024-11-14 10:08 | DVHPN2 ---
Progress Note Date Seen: Nov 14, 2024 Medical Necessity Reason Pt with a Central, PICC or Fol: No Subjective Patient reports: No new complaints Review of Systems: HEENT:Normal, CVS:Normal, RESPIRATORY:Normal, GI:Normal, :Normal, MSK:Normal, NEURO:Normal Objective vital signs Vital Sign Date Time Temp Pulse Resp B/P (MAP) Pulse Ox O2 Delivery O2 Flow Rate FiO2 11/14/24 09:50 60 138/57 11/14/24 09:02 98.6 18 92 98.6 11/13/24 23:02 Nasal Cannula* 2 28 Total Intake and Output 11/13/24 11/13/24 11/14/24 15:00 23:00 07:00 Intake Total 2000 ml 180 ml 0 ml Output Total 850 ml Balance 2000 ml 180 ml -850 ml medications Current Medications Medications Dose Ordered Sig/Amita Route Start Time Stop Time Status Last Admin Dose Admin Albuterol 2.5 mg Q4HPRN PRN NEB 11/13/24 15:00 Ipratropium [place] 0.5 mg Q4HPRN PRN NEB 11/13/24 15:00 Levothyroxine Sodium 25 mcg QAM@0600 PO 11/14/24 06:00 Aspirin 81 mg DAILY PO 11/14/24 10:00 11/14/24 09:52 81 MG Atorvastatin Calcium 20 mg HS PO 11/13/24 22:00 11/13/24 22:06 20 MG Sodium Chloride 1,000 ml @ 60 mls/hr [id number] IV 11/13/24 15:00 11/13/24 15:00 60 MLS/HR Ondansetron HCl 4 mg Q4HP PRN IV 11/13/24 15:00 Docusate Sodium 100 mg BIDPRN PRN PO 11/13/24 15:00 Acetaminophen 650 mg Q6HP PRN PO 11/13/24 15:00 11/13/24 15:54 650 MG Levothyroxine Sodium 112 mcg QAM@0600 PO 11/14/24 06:00 Nitroglycerin 0.4 mg Q5MINP PRN SL 11/13/24 16:15 Morphine Sulfate 2 mg Q30M PRN IV 11/13/24 16:15 Hold Enoxaparin Sodium 80 mg Q12HR SC 11/13/24 22:00 11/14/24 09:56 80 MG Guaifenesin/ Dextromethorphan 10 ml Q6HR PRN PO 11/14/24 00:15 11/14/24 00:41 10 ML Metoprolol Succinate 25 mg DAILY PO 11/14/24 10:00 11/14/24 09:50 25 MG Examination: GENERAL:Normal, HEENT:Normal, NECK:Normal, LUNGS:Normal, CVS:Normal, ABDOMEN:Normal, MSK:Normal, SKIN:Normal, NEURO:Normal, :Normal laboratory and microbiology Laboratory Tests 11/13/24 07:54 Test 11/13/24 07:54 Range/Units Serum Glucose 143 H 74-106 mg/dL Problem List/Assessment/Plan Problem List/Assessment/Plan #1 covid 19 pneumonia: cont meds #2 nstemi: cardio eval, echo #3 asthma #4 s/p svt #5 obesity #6 hypothyroidism s/p surgery: resume med advance care planning- full code- time spent 19 mins Plan discussed with: Patient My Orders My Orders Orders - SUSY ELLSWORTH MD Procedure Category Date Status Time Urinalysis LAB 11/14/24 Uncollected 10:03 Methylprednisolone PHA 11/14/24 Transmitted Sod Succ (Solu Medrol 10:15 Methylprednisolone PHA 11/14/24 Transmitted Sod Succ (Solu Medrol 22:00 Azithromycin 500mg/ PHA 11/15/24 Transmitted 250ml (Zithromax 50 10:00 Azithromycin 500mg/ PHA 11/14/24 Transmitted 250ml (Zithromax 50 10:15 Basic Metabolic Panel LAB 11/15/24 Verified 06:00 Complete Blood Count LAB 11/15/24 Verified 06:00 Magnesium LAB 11/15/24 Verified 05:00 Date of Service: Nov 14, 2024 Billing Provider: SUSY ELLSWORTH MD Common Visit Codes: [id number] INP/OBS CARE(HIGH) Secondary Visit Codes: [id number] CARE PLAN 30 MINUTES SUSY ELLSWORTH MD Nov 14, 2024 10:08
[2024-11-14 11:30] LABS: Alanine Aminotransferase 13 U/L (7-40); Alkaline Phosphatase 86 U/L (46-116); Anion Gap 6 (5-15); BUN/Creatinine Ratio 10.9 (10.0-20.0); Carbon Dioxide 27 mmol/L (20-31); Glucose 100 mg/dL (74-106); Potassium 3.8 mmol/L (3.5-5.1); Sodium 141 mmol/L (136-145)
[2024-11-14 11:31] LABS: Albumin 3.6 g/dL (3.2-4.8); Aspartate Aminotransferase 24 U/L (13-40)
[2024-11-14 11:32] LABS: Bilirubin, Total 0.4 mg/dL (0.2-1.0)
[2024-11-14 11:34] LABS: Blood Urea Nitrogen 7 mg/dL (9-23); Calcium 8.6 mg/dL (8.7-10.4); Chloride 108 mmol/L (98-107); Total Protein 5.6 g/dL (5.7-8.2)
[2024-11-14] MEDS: AZITHROMYCIN 500MG/ 250ML 250 ML IV ONE (12:01)
[2024-11-14] MEDS: methylPREDNISolone SOD SUCC 40 MG/ML VL IV ONE (12:01)
[2024-11-14 12:43] LABS: Basophils # (auto) 0 10 ^3/uL (0-0.2); Basophils % (auto) 0.6 % (0.0-2.0); Eosinophils # (auto) 0.1 10 ^3/uL (0-0.8); Eosinophils % (auto) 2.3 % (0.0-7.0); Hematocrit 36.8 % (36.0-46.0); Hemoglobin 12.4 g/dL (12.2-16.2); Lymphocytes % (auto) 20.1 % (10.0-50.0); Mean Corpuscular Hgb Conc. 33.8 g/dL (32.0-36.0); Mean Corpuscular Volume 97.7 fL (80.0-100.0); Monocytes # (auto) 0.4 10 ^3/uL (0-1.3); Monocytes % (auto) 8.9 % (0.0-12.0); Neutrophils # (auto) 3.3 10 ^3/uL (1.6-8.6); Neutrophils % (auto) 68.1 % (37.0-80.0); Nucleated Red Blood Cells % 0.2 %; Platelet Count (auto) 159 10^3/uL (140-450); Red Blood Cells 3.76 10^6/uL (4.0-5.20); Red Cell Distribution Width 13.7 % (11.8-14.3); White Blood Cell 4.8 10^3/uL (4.4-10.8)
--- NOTE | 2024-11-14 13:04 | DVHSR ---
APPROVED REPORT EXAM: Two-dimensional and M-mode echocardiogram with Doppler and color Doppler. Blood Pressure: 130/57 mmHg INDICATION SVT RISK FACTORS Height: 61, Weight: 185 DIMENSIONS LVDd4.3 (3.8-5.7cm)LA (2D)4.1 (1.9-4.0cm)Aortic Root3.7 (2.0-3.7cm) LVDs3.1 (2.5-4.0cm)LA (MM) (1.9-4.0cm)Aortic Cusp Exc1.9 (1.5-2.0cm) EF (%) 55.0 (55-70%)Rt. Atrium4.3 (1.9-4.0cm)Asc. Aorta cm IVSd1.2 (0.7-1.1cm)RV (D) (1.8-2.4cm) PWd1.2 (0.7-1.1cm) Mitral Valve MitralMitral Stenosis E wave1.05m/sMV Mean GR.mmHg A wave1.02m/sMV Peak GR.98mmHg E/A ratio1.02D MVAcm2 DECEL [id number] 1/2 Qows23tw IVRTmsDop MVA3.08cm2 Aortic Valve Aortic ValveAortic Stenosis V11.44m/Joao Mean GR.6mmHg V21.81m/Joao Peak GR.13mmHg LVOT Diameter1.8 (1.8-2.4cm)Doppler AVA2.02cm2 AI P 1/2 Xqem239.36ms Pulmonic Valve V20.99m/s Tricuspid Valve TR Velocity2.30m/s [id number] Conclusion lvef 60% by vsual estimate milld LVH normal rv function mild to moderate left atrium enlarged no severe valve abnormalities noted
[2024-11-14 13:15] LABS: Urine Bacteria None Seen /hpf (None Seen)
[2024-11-14 13:26] LABS: Urine Blood 3+ /uL (Negative); Urine Clarity Turbid (Clear); Urine Color Colorless (Yellow); Urine Mucus FEW (None Seen); Urine Protein, UAD TRACE (Negative); Urine Specific Gravity 1.014 (1.001-1.035); Urine Squamous Epithelial Cell FEW /hpf (<5); Urine Urobilinogen Normal (Negative); Urine WBC 9 /HPF (0-5); Urine pH 5.5 (5.0-9.0)
[2024-11-14] MEDS: methylPREDNISolone SOD SUCC 40 MG/ML VL IV SCH (21:28)
[2024-11-15 01:00] VITALS: BP 127/56; PULSE 47; RESP 18; TEMP 98.1; O2SAT 91
[2024-11-15 05:00] VITALS: BP 115/39; PULSE 46; RESP 16; TEMP 98.3; O2SAT 94
[2024-11-15 07:15] LABS: Anion Gap 5 (5-15); Carbon Dioxide 27 mmol/L (20-31); Potassium 3.9 mmol/L (3.5-5.1); Sodium 140 mmol/L (136-145)
[2024-11-15 07:16] LABS: Calcium 8.7 mg/dL (8.7-10.4)
[2024-11-15 07:21] LABS: Blood Urea Nitrogen 13 mg/dL (9-23)
[2024-11-15 07:24] LABS: Chloride 108 mmol/L (98-107); Glucose 125 mg/dL (74-106)
[2024-11-15 07:26] LABS: Basophils # (auto) 0 10 ^3/uL (0-0.2); Basophils % (auto) 0.1 % (0.0-2.0); Eosinophils # (auto) 0 10 ^3/uL (0-0.8); Hematocrit 37.4 % (36.0-46.0); Hemoglobin 12.8 g/dL (12.2-16.2); Lymphocytes % (auto) 23.7 % (10.0-50.0); Mean Corpuscular Hgb Conc. 34.3 g/dL (32.0-36.0); Mean Corpuscular Volume 96.1 fL (80.0-100.0); Monocytes # (auto) 0.2 10 ^3/uL (0-1.3); Monocytes % (auto) 4.4 % (0.0-12.0); Neutrophils # (auto) 3.1 10 ^3/uL (1.6-8.6); Neutrophils % (auto) 71.8 % (37.0-80.0); Platelet Count (auto) 155 10^3/uL (140-450); Red Blood Cells 3.89 10^6/uL (4.0-5.20); Red Cell Distribution Width 13.5 % (11.8-14.3); White Blood Cell 4.4 10^3/uL (4.4-10.8)
--- NOTE | 2024-11-15 07:43 | ECG ---
[facility] Test Date: 2024-11-15 Test Time: 04:48:11 Pat Name: YELITZA DE SANTIAGO Department: Respiratoy Room: 0201T A Gender: F Manager Money: : 1950 Requested By: SUSY ELLSWORTH Order Number: [id number] Reading MD: Judith Reyes Measurements Intervals [place] Rate: 47 P: 42 NH: 158 QRS: 66 QRSD: 96 T: 37 QT: 492 QTc: 435 Interpretive Statements Sinus bradycardia Electronically Signed On 11-15-2024 10:34:34 PST by Judith Reyes Please click the below link to view image of tracing.
--- NOTE | 2024-11-15 07:58 | DVHPN2 ---
Consult Progress Note Date Seen: Nov 15, 2024 Subjective Review of Systems: CVS:Normal, RESPIRATORY:Abnormal, NEURO:Normal Other Systems: C/o non-productive cough Objective vital signs Vital Sign Date Time Temp Pulse Resp B/P (MAP) Pulse Ox O2 Delivery O2 Flow Rate FiO2 11/15/24 05:00 98.3 46 16 115/39 (64) 94 98.3 11/14/24 20:00 Room Air* 0 21 Total Intake and Output 11/14/24 11/14/24 11/15/24 15:00 23:00 07:00 Intake Total 460 ml 1230 ml 200 ml Output Total 2650 ml 1000 ml Balance 460 ml -1420 ml -800 ml medications Current Medications Medications Dose Ordered Sig/Amita Route Start Time Stop Time Status Last Admin Dose Admin Albuterol 2.5 mg Q4HPRN PRN NEB 11/13/24 15:00 Cancel Ipratropium [place] 0.5 mg Q4HPRN PRN NEB 11/13/24 15:00 Cancel Levothyroxine Sodium 25 mcg QAM@0600 PO 11/14/24 06:00 11/15/24 05:01 25 MCG Aspirin 81 mg DAILY PO 11/14/24 10:00 11/14/24 09:52 81 MG Atorvastatin Calcium 20 mg HS PO 11/13/24 22:00 11/14/24 21:29 20 MG Sodium Chloride 1,000 ml @ 60 mls/hr [id number] IV 11/13/24 15:00 11/14/24 07:40 60 MLS/HR Ondansetron HCl 4 mg Q4HP PRN IV 11/13/24 15:00 Docusate Sodium 100 mg BIDPRN PRN PO 11/13/24 15:00 Acetaminophen 650 mg Q6HP PRN PO 11/13/24 15:00 11/13/24 15:54 650 MG Levothyroxine Sodium 112 mcg QAM@0600 PO 11/14/24 06:00 11/15/24 05:01 112 MCG Nitroglycerin 0.4 mg Q5MINP PRN SL 11/13/24 16:15 Morphine Sulfate 2 mg Q30M PRN IV 11/13/24 16:15 Hold Guaifenesin/ Dextromethorphan 10 ml Q6HR PRN PO 11/14/24 00:15 11/14/24 21:28 10 ML Metoprolol Succinate 25 mg DAILY PO 11/14/24 10:00 11/14/24 09:50 25 MG Methylprednisolone Sodium Succinate 20 mg BID IV 11/14/24 22:00 11/14/24 21:28 20 MG Azithromycin 250 ml @ 125 mls/hr DAILY IV 11/15/24 10:00 Enoxaparin Sodium 40 mg DAILY SC 11/15/24 10:00 Examination: LUNGS:Normal, CVS:Normal (Sinus bradycardia in the 40s bpm, asymptomatic), NEURO:Normal laboratory and microbiology Laboratory Tests 11/15/24 06:17 Test 11/15/24 06:17 Range/Units Serum Glucose 125 H 74-106 mg/dL Problem List/Assessment/Plan Problem List/Assessment/Plan Non-ST elevation Myocardial Infarction, questionable Type I Supraventricular tachycardia s/p chemical cardioversion Beta-lucia induced bradycardia, asymptomatic Rule out coronary artery disease Active COVID-19 virus Hx of total thyroidectomy Pre-diabetes, newly diagnosed Dyslipidemia Asthma Obesity Plan/Recommendation (Dr. Reyes) The patient with supraventricular tachycardia and successful chemical cardioversion underwent a transthoracic echocardiogram revealing an EF of 60% with mild to moderate left atrial enlargement. Continue metoprolol XL (reduced dose) with parameters for HR >60 bpm given sinus bradycardia, single- antiplatelet therapy, and lipid-lowering agent. TSH levels WNL. DVT/VTE prophylaxis. Consider an outpatient stress test to rule out coronary artery disease. Follow-up with Cardiology at [facility] within 3-4 weeks post- discharge. There is no further cardiac work-up indicated at this time. Kindly call if in need to re-consult. Thank you for allowing us to participate in this patient's care. This medical document was created using an electronic medical record system with voice recognition software and computerized dictation system. Although this document has been carefully reviewed, there might still be some phonetic and typographical errors. Occasional wrong-word or ``sound-alike substitutions may have occurred due to the inherent limitations of voice recognition software. These areas are purely typographical due to imperfections of the software programs and do not reflect any compromise in the patient's medical care. Please read the chart carefully and recognize, using context, where these substitutions have occurred. Plan discussed with: Patient, Other Date of Service: Nov 15, 2024 Billing Provider: JOSE DALTON Cardiology Common Codes: [id number] HOSP CARE(High JOSE DALTON Nov 15, 2024 07:58
[2024-11-15 08:00] VITALS: PULSE 44; RESP 18; O2SAT 95
[2024-11-15 09:19] VITALS: BP 135/59; RESP 18; TEMP 97.6; O2SAT 95
--- NOTE | 2024-11-15 09:47 | DVHDS2 ---
Discharge Summary Date of Admission Nov 13, 2024 at 16:13 Date of Discharge: Nov 15, 2024 Labs/Diagnostic Data: Laboratory Results Test 11/15/24 06:17 11/14/24 11:10 11/14/24 10:28 11/13/24 22:28 White Blood Count 4.4 10^3/uL (4.4-10.8) Red Blood Count 3.89 10^6/uL (4.0-5.20) Hemoglobin 12.8 g/dL (12.2-16.2) Hematocrit 37.4 % (36.0-46.0) Mean Corpuscular Volume 96.1 fL (80.0-100.0) Mean Corpuscular Hemoglobin 33.0 pg (28.0-32.0) Mean Corpuscular Hemoglobin Concent 34.3 g/dL (32.0-36.0) Red Cell Distribution Width 13.5 % (11.8-14.3) Platelet Count 155 10^3/uL (140-450) Mean Platelet Volume 8.8 fL (6.9-10.8) Neutrophils (%) (Auto) 71.8 % (37.0-80.0) Lymphocytes (%) (Auto) 23.7 % (10.0-50.0) Monocytes (%) (Auto) 4.4 % (0.0-12.0) Eosinophils (%) (Auto) 0.0 % (0.0-7.0) Basophils (%) (Auto) 0.1 % (0.0-2.0) Neutrophils # (Auto) 3.1 10 ^3/uL (1.6-8.6) Lymphocytes # (Auto) 1.0 10 ^3/uL (0.4-5.4) Monocytes # (Auto) 0.2 10 ^3/uL (0-1.3) Eosinophils # (Auto) 0 10 ^3/uL (0-0.8) Basophils # (Auto) 0 10 ^3/uL (0-0.2) Nucleated Red Blood Cells 0.0 % Sodium Level 140 mmol/L (136-145) Potassium Level 3.9 mmol/L (3.5-5.1) Chloride Level 108 mmol/L (98-107) Carbon Dioxide Level 27 mmol/L (20-31) Anion Gap 5 (5-15) Blood Urea Nitrogen 13 mg/dL (9-23) Creatinine 0.59 mg/dL (0.550-1.02) Glomerular Filtration Rate Calc 95 mL/min (>90) BUN/Creatinine Ratio 22.0 (10.0-20.0) Serum Glucose 125 mg/dL (74-106) Calcium Level 8.7 mg/dL (8.7-10.4) Magnesium Level 2.0 mg/dL (1.6-2.6) Urine Color Colorless (Yellow) Urine Clarity Turbid (Clear) Urine pH 5.5 (5.0-9.0) Urine Specific [place] 1.014 (1.001-1.035) Urine Protein Trace (Negative) Urine Ketones Negative (Negative) Urine Blood 3+ /uL (Negative) Urine Nitrite Negative (Negative) Urine Bilirubin Negative (Negative) Urine Urobilinogen Normal mg/dL (Negative) Urine Leukocyte Esterase Negative /uL (Negative) Urine RBC 597 /hpf (0 - 4) Urine Microscopic WBC 9 /HPF (0-5) Urine Squamous Epithelial Cells Few /hpf (<5) Urine Bacteria None seen /hpf (None Seen) Urine Mucus Few (None Seen) Urine Glucose Normal mg/dL (Normal) Total Bilirubin 0.4 mg/dL (0.2-1.0) Aspartate Amino Transferase (AST) 24 U/L (13-40) Alanine Aminotransferase (ALT) 13 U/L (7-40) Alkaline Phosphatase 86 U/L (46-116) Troponin I High Sensitivity 591 ng/L (</=34) Total Protein 5.6 g/dL (5.7-8.2) Albumin 3.6 g/dL (3.2-4.8) Prothrombin Time 13.0 sec (9.3-11.8) Prothrombin Time INR 1.25 (0.9-1.15) Activated Partial Thromboplast Time 36.5 SEC (24.5-34.5) Test 11/13/24 17:52 11/13/24 07:54 Influenza Type A Antigen Negative (Negative) Influenza Type B Antigen Negative (Negative) SARS-CoV-2 Antigen (Rapid) Positive (NEGATIVE) D-Dimer, Quantitative 0.41 mg/L FEU (0.0-0.49) Hemoglobin A1c 5.9 % A1C (<5.7) B-Type Natriuretic Peptide 92.52 pg/mL (0-100) Triglycerides Level 132 mg/dL (< 150) Cholesterol Level 135 mg/dL (< 200) LDL Cholesterol 62 mg/dL (< 100) HDL Cholesterol 55 mg/dL (40-59) Thyroid Stimulating Hormone (TSH) 3.24 uIU/mL (0.55-4.78) Other Laboratory Tests 11/15/24 06:17 Brief Hx & Hospital Course: SEE DICTATED NOTE Condition at Discharge: Fair Final Diagnosis/Problems List COVID 19 Discharge Disposition: Home Discharge Instruct/Medications Diet: Cardiac 2g Na,low cholest Activity: [id number] Follow Up/Referral: FU WITH [facility] Medications: RESUME HOME MEDS SCRIPT TO PHARMACY Discharge Statement: "Patient was advised to return to the ER or call 911 if any headaches, dizziness, shortness of breath, chest pain, abdominal pain, bleeding, fevers, or worsening of medical condition. Patient was counseled about treatment plan, medications, possible side effects, patientverbalized understanding. All questions were answered to the best of my ability. This discharge took greater then 30 minutes in planning, reviewing documentation, counseling the patient, and discussing with other team members." ASSESSMENT ASSESSMENT Assessment COVID 19 Date of Service: Nov 15, 2024 Billing Provider: SUSY ELLSWORTH MD Common Visit Codes: 85003-MLW/OBS DISCH DAY >30min SUSY ELLSWORTH MD Nov 15, 2024 09:47
[2024-11-15] MEDS ORDERED: PRED20TA2 PO (09:50)
[2024-11-15] MEDS ORDERED: ASPI-498 PO (09:50)
[2024-11-15] MEDS ORDERED: AZITTAB2 PO (09:50)
[2024-11-15 09:51] VITALS: BP 138/57; PULSE 60; TEMP 36.4
[2024-11-15] MEDS: AZITHROMYCIN 500MG/ 250ML 250 ML IV SCH (09:55)
[2024-11-15] MEDS: ENOXAPARIN SOD 40 MG/0.4 ML SYRINGE SC SCH (09:56)
[2024-11-15] MEDS: METOPROLOL SUCCINATE XL 50 MG TAB PO SCH (10:00)
--- NOTE | 2024-11-15 10:22 | DVHDS ---
HISTORY OF PRESENT ILLNESS: The patient is a 73-year-old lady who was admitted with history of chest discomfort and tightness and has history of asthma and hypothyroidism. HOSPITAL COURSE: The patient was noted to be in SVT that converted with adenosine. TSH was 3.24. The patient's troponin levels were elevated up to 1200. She was seen in Cardiology consult by . The patient had echocardiogram that showed ejection fraction of 60%. The patient was COVID-19 positive. The patient had a chest x-ray that showed no acute disease. The patient will now be discharged home to resume her home medications as well as to be on aspirin 81 mg daily, prednisone 20 mg daily for 5 days and Zithromax 500 mg daily for 3 days. The patient will follow up with [facility] for consideration of an outpatient stress test. FINAL DIAGNOSES: Therefore, * COVID-19 pneumonia. * Supraventricular tachycardia. * Non-ST elevation myocardial infarction, questionably type 1 versus type 2. * Asthma. * Obesity. * Hypothyroidism, status post thyroid surgery. Time spent on discharge planning and review of plan with the patient and nursing was 38 minutes. MD KRISTIE Valles/STEVEN/AMI TID: [id number] RECEIPT: [id number]
[2024-11-15 12:46] VITALS: BP 116/54; PULSE 51; RESP 17; TEMP 98; O2SAT 95
--- NOTE | 2024-11-15 13:52 | ECG ---
[facility] Test Date: 2024-11-15 Test Time: 04:49:04 Pat Name: YELITZA DE SANTIAGO Department: Respiratoy Room: 0201T A Gender: F Fleet Assistant: : 1950 Requested By: SUSY GILES Order Number: [id number] Reading MD: Judith Reyes Measurements Intervals [place] Rate: 44 P: 59 [place]: 158 QRS: 68 QRSD: 97 T: 37 QT: 502 QTc: 430 Interpretive Statements Sinus bradycardia Electronically Signed On 11-16-2024 8:12:36 PST by Judith Reyes Please click the below link to view image of tracing.
== END 2024-11-15 12:40 | disposition home or self-care (01) | DRG 177 ==
LOC: ER 07:43 → TELE 16:13 → TELE-CENTR 23:02
PROVIDERS: ADMIT Internal Medicine; ATTEND Internal Medicine
DX: U07.1 COVID-19 (principal); I21.A1 Myocardial infarction type 2; J12.82 Pneumonia due to coronavirus disease 2019; I47.10 Supraventricular tachycardia, unspecified; I48.0 Paroxysmal atrial fibrillation; E66.9 Obesity, unspecified; J45.909 Unspecified asthma, uncomplicated; E78.5 Hyperlipidemia, unspecified; N18.30 Chronic kidney disease, stage 3 unspecified; R73.9 Hyperglycemia, unspecified; E03.9 Hypothyroidism, unspecified; I45.10 Unspecified right bundle-branch block; Z88.5 Allergy status to narcotic agent; Z79.82 Long term (current) use of aspirin; Z68.36 Body mass index [BMI] 36.0-36.9, adult
CPT/HCPCS: 36415; 71045; 80048; 80053; 80061; 81001; 83036; 83735; 83880; 84443; 84484; 85025; 85379; 85610; 85730; 87426; 87804; 93005; 93306; 94640; 96361; 96374; G0378; J0153

== ENCOUNTER 2024-12-12 18:02 | Inpatient (IN) | payer OTHER ==
[~2024-12-12] VITALS: Ht 154.9 cm; Wt 47.1 kg
[~2024-12-12 18:02] MED LIST changes: +ASPI-498 PO; +AZITTAB2 PO; +PRED20TA2 PO
[2024-12-12] MEDS: SODIUM CHLORIDE 0.9% 1,000 ML IV ONE (18:15)
[2024-12-12] MEDS ORDERED: dilTIAZem 25 MG/5 ML VIAL IV ONE (18:15)
--- NOTE | 2024-12-12 18:40 | ED.PDOC ---
History of Present Illness HPI Comments 73 y/o F, with a history of AFib, non STEMI, asthma, HLD, hypothyroidism s/p thyroidectomy, presents with c/o retrosternal pressure-like chest pain, shortness of breath, lightheadedness, diaphoresis, bilateral arm numbness, nausea and vomiting onset 2 hours ago. Patient reports history of similar symptoms in the past which resulted in hospital admission here with rapid AFib and pneumonia. She also states she received the RSV vaccine yesterday. Patient denies cough, congestion, fever, chills, abdominal pain, diarrhea or urinary symptoms. Time Seen by MD: 18:10 Primary Care Provider: emeli Reviewed Notes: Nurses Notes, Medications, Allergies Allergies: Coded Allergies: Codeine (Verified Allergy, Mild, 11/13/24) Aspirin (Verified Allergy, Unknown, 12/12/24) Home Meds Active Scripts Aspirin (ASPIRIN 81) 81 Mg Tab, 81 MG PO DAILY for 30 Days, #30 TAB 3 Refills Prov:SUSY ELLSWORTH MD 11/15/24 Azithromycin (Zithromax Tri-Bijan) 500 Mg Tab, 500 MG PO DAILY for 3 Days, #3 TAB Prov:SUSY ELLSWORTH MD 11/15/24 Prednisone (Prednisone) 20 Mg Tab, 20 MG PO QAM for 5 Days, #10 MG Prov:SUSY ELLSWORTH MD 11/15/24 Reported Medications Atorvastatin Calcium (ATORVASTATIN CALCIUM) 20 Mg Tab, 1 TAB PO DAILY for 100 Days, #100 11/14/24 Levothyroxine Sodium (Levothyroxine Sodium) 137 Mcg Tab, 1 TAB PO UD for 100 Days, #50 11/14/24 Information Source: Patient Mode of Arrival: Ambulatory Severity: Moderate Timing: Hours Duration: Since onset Prehospital treatment: None Past Medical History PAST MEDICAL HISTORY: Asthma, High Lipids, ID (non-STEMI), Thyroid (Hypothyroidism) Past Medical History (Other): AFib, obesity Surgical History: Hernia Repair, 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 Family History Family History: Reviewed,noncontributory to illness, No family hx of Cancer, No family hx of DM, No family hx of Heart eb, No family hx of HTN, No family hx ofKidney eb, No family hx of Liver eb, No family hx of Lung eb, No family hx of Stroke Social History Smoker: Non-Smoker Alcohol: Denies ETOH Use Drugs: Denies Drug Use Lives In: Home All Other Systems: Reviewed and Negative (Comprehensive systems review obtained and negative except for what is stated in the HPI.) Physical Exam General Appearance: Moderate Distress HEENT: Other (Pupils and face symmetric, moist mucous membranes) Neck: Full Range of Motion, Normal Inspection Respiratory: Chest Non-Tender, Lungs Clear, No Accessory Muscle Use, No Respiratory Distress, Normal Breath Sounds Cardiovascular: No Edema, No JVD, Tachycardia Breast Exam: Deferred Gastrointestinal: Non Tender, Soft Genitalia: Deferred Pelvic: Deferred Rectal: Deferred Extremities: Normal inspection, Normal range of motion, Non-tender, No pedal edema Neurologic: Alert (Oriented x4), Normal Affect, Normal Mood, Other (Ambulatory without difficulty. No gross focal deficit.) Cerebellar Function: NOT DONE Reflexes: NOT DONE Skin: Diaphoresis, Normal Color, Warm Lymphatic: NOT DONE Was a procedure done? Was a procedure done?: No EKG EKG #1: Pulse Rate (adult): 205 Comments SVT versus rapid AFib, rate 205, normal QRS and QTC intervals, normal axis, inferior and lateral T-wave inversion with ST depression EKG #2: Comments Sinus rhythm, rate 75, normal intervals, normal axis, normal QRS, minimal inferior/lateral ST depression Differential Dx Considerations may include: arrhythmia, ACS, ID, PE, PNA, URI, viral syndrome, electrolyte imbalance, CHF, COPD, among others X-Ray, Labs, Meds, VS Vital Signs Date Time Temp Pulse Resp B/P (MAP) Pulse Ox O2 Delivery O2 Flow Rate FiO2 12/13/24 00:00 70 24 96/38 (57) 90 12/13/24 00:00 70 12/12/24 22:00 66 24 97/45 (62) 92 12/12/24 20:00 80 12/12/24 19:30 98.1 80 24 106/36 (59) 95 98.1 12/12/24 19:30 80 24 95 Room Air* 0 21 12/12/24 19:03 75 12/12/24 19:02 96 Room Air* 0 21 12/12/24 19:02 205 12/12/24 19:00 97.2 78 19 90/50 (63) 95 97.2 12/12/24 18:57 206 24 96 Room Air* 0 21 12/12/24 18:55 205 97/76 12/12/24 18:40 205 12/12/24 18:39 196 12/12/24 18:11 97.2 206 20 97/76 (83) 96 Lab Test 12/12/24 22:00 12/12/24 21:30 12/12/24 19:30 12/12/24 18:43 Range/Units Urine Color Light-yellow Yellow Urine Clarity Clear Clear Urine pH 5.0 5.0-9.0 Urine Specific [place] 1.006 1.001-1.035 Urine Protein Negative Negative Urine Ketones Negative Negative Urine Blood Negative Negative /uL Urine Nitrite Negative Negative Urine Bilirubin Negative Negative Urine Urobilinogen Normal Negative mg/dL Urine Leukocyte Esterase 1+ Negative /uL Urine RBC <1 0 - 4 /hpf Urine Microscopic WBC 12 H 0-5 /HPF Urine Squamous Epithelial Cells None seen <5 /hpf Urine Bacteria None seen None Seen /hpf Urine Hyaline Casts Few 0 - 2 /lpf Urine Glucose Normal Normal mg/dL Troponin I High Sensitivity 567 *H 58 *H 16 </=34 ng/L White Blood Count 6.3 4.4-10.8 10^3/uL Red Blood Count 4.36 4.0-5.20 10^6/uL Hemoglobin 14.2 12.2-16.2 g/dL Hematocrit 42.0 36.0-46.0 % Mean Corpuscular Volume 96.5 80.0-100.0 fL Mean Corpuscular Hemoglobin 32.6 H 28.0-32.0 pg Mean Corpuscular Hemoglobin Concent 33.8 32.0-36.0 g/dL Red Cell Distribution Width 14.3 11.8-14.3 % Platelet Count 213 140-450 10^3/uL Mean Platelet Volume 8.4 6.9-10.8 fL Neutrophils (%) (Auto) 65.0 37.0-80.0 % Lymphocytes (%) (Auto) 25.2 10.0-50.0 % Monocytes (%) (Auto) 6.8 0.0-12.0 % Eosinophils (%) (Auto) 2.2 0.0-7.0 % Basophils (%) (Auto) 0.8 0.0-2.0 % Neutrophils # (Auto) 4.1 1.6-8.6 10 ^3/uL Lymphocytes # (Auto) 1.6 0.4-5.4 10 ^3/uL Monocytes # (Auto) 0.4 0-1.3 10 ^3/uL Eosinophils # (Auto) 0.1 0-0.8 10 ^3/uL Basophils # (Auto) 0 0-0.2 10 ^3/uL Nucleated Red Blood Cells 0.2 % Sodium Level 141 136-145 mmol/L Potassium Level 3.9 3.5-5.1 mmol/L Chloride Level 104 98-107 mmol/L Carbon Dioxide Level 24 20-31 mmol/L Anion Gap 13 5-15 Blood Urea Nitrogen 16 9-23 mg/dL Creatinine 0.98 0.550-1.02 mg/dL Glomerular Filtration Rate Calc 61 >90 mL/min BUN/Creatinine Ratio 16.3 10.0-20.0 Serum Glucose 158 H 74-106 mg/dL Calcium Level 9.5 8.7-10.4 mg/dL Magnesium Level 2.1 1.6-2.6 mg/dL Total Bilirubin 0.6 0.2-1.0 mg/dL Aspartate Amino Transferase (AST) 29 13-40 U/L Alanine Aminotransferase (ALT) 17 7-40 U/L Alkaline Phosphatase 146 H 46-116 U/L B-Type Natriuretic Peptide 51.94 0-100 pg/mL Total Protein 6.6 5.7-8.2 g/dL Albumin 4.5 3.2-4.8 g/dL Current Medications Medications (Trade) Dose Ordered Sig/Amita Route Start Time Stop Time Status Last Admin Sodium Chloride 1,000 ml @ 1,000 mls/hr Q1H ONCE IV 12/12/24 18:15 12/12/24 19:14 DC 12/12/24 18:15 Ondansetron HCl (Zofran) 4 mg ONCE ONCE IV 12/12/24 18:15 12/12/24 18:16 DC 12/12/24 18:55 Diltiazem HCl (Cardizem Injection) 10 mg ONCE ONCE IV 12/12/24 18:45 12/12/24 18:46 DC 12/12/24 18:55 Aspirin 325 mg ONCE ONCE PO 12/12/24 20:45 12/12/24 20:46 DC 12/12/24 20:59 PROCEDURE(s): CXRP - CHEST PORTABLE REASON: rapid afib ORDER NUMBER(s): [id number], ACCESSION NUMBER(s): [id number] CHEST RADIOGRAPH Indication: rapid afib Technique: Single frontal view of the chest was obtained Comparison: XY CHEST PORTABLE on DOS: 11/13/24 FINDINGS: Lines and Tubes: None Lungs: No focal consolidation. Pleura: No effusion. No pneumothorax. Cardiomediastinal contours: Unremarkable Bones: No acute osseous abnormality. IMPRESSION: No acute cardiopulmonary disease. X-Ray, Labs, Meds, VS Comment 73-year-old female with a history of AFib, non STEMI, hypertension, dyslipidemia, asthma, thyroid disease complaining of chest pain, shortness a breath, nausea, vomiting and diaphoresis Initial vitals remarkable for heart rate 205, BP 97/76 Exam remarkable for diaphoresis, active vomiting, irregularly irregular tachycardic heart rhythm Rhythm strip independently interpreted by me: SVT versus AFib RVR, rate to 0 5 Chest x-ray unremarkable CBC unremarkable, CMP, BNP and 1st troponin Patient treated with the following in the ED: Cardizem 10 mg IV, Zofran 4 mg IV, 1 L 0.9 normal saline IV bolus On re-evaluation after Cardizem, patient has converted to a sinus rhythm with a controlled rate. Chest pain resolved, other vitals were stable. Plan is to admit/transfer the patient for Cardiology evaluation. Case discussed with Dr. Durate @ [facility], will await 3rd troponin. If elevated, we will keep the patient here. If down trending, patient may be transferred to [place]. Authorization [id number] Third troponin was 567. Discussed with Dr. Underwood, who authorized the patient to be admitted here. Time of 1ST Reevaluation: 18:40 Reevaluation 1ST: Unchanged Patient Education/Counseling: Diagnosis, Treatment Family Education/Counseling: No Family Present Additional Information - I reviewed the following notes from patient's past medical encounters: ED visit 11/13/24 - The following tests were ordered, and results were reviewed by me: EKG, troponin, magnesium, UA, BNP, CMP, CBC, CXR - I reviewed and agreed with the following test results read by other provider: CXR - I discussed treatments and results with medical personnel Departure 1 Departure Time of Disposition: 21:42 Impression: Primary Impression: Atrial fibrillation with RVR Additional Impression: Elevated troponin Disposition: ADMITTED INPATIENT Admit to: Tele Condition: Guarded Critical Care Note Critical Care Time?: Yes (45 min-critical care time only) Critical care comment: Critical care time including multiple bedside re-evaluations, review of lab and imaging studies, and discussion of the case with the admitting and consulting providers. Patient is high risk for hemodynamic decompensation. Stability Stability form required: No Heart Score Heart Score: Heart Score Response (Comments) Value History Highly Suspicious 2 EKG Repolarization Disturb 1 Age >65 2 Risk Factors >3 or Hx ASHD 2 Troponin 1-2 x's Normal limit 1 Total 8 I personally scribed for MYRNA SUAREZ MD ([email or web address]) on 12/12/24 at 18:40. Electronically submitted by Aaron Newton [email or web address]). MYRNA SUAREZ MD Dec 12, 2024 18:40
[2024-12-12] MEDS: ONDANSETRON HCL 4 MG/2 ML VIAL IV ONE (18:55)
[2024-12-12] MEDS: dilTIAZem HCL 50 MG/10 ML VIAL IV ONE (18:55)
[2024-12-12 18:57] VITALS: PULSE 206; RESP 24; O2SAT 96
--- NOTE | 2024-12-12 19:04 | ECG ---
[facility] Test Date: 2024-12-12 Test Time: 19:03:17 Pat Name: YELITZA DE SANTIAGO Department: er Room: 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
--- NOTE | 2024-12-12 19:05 | DVH ---
CHEST RADIOGRAPH Indication: rapid afib Technique: Single frontal view of the chest was obtained Comparison: XY CHEST PORTABLE on DOS: 11/13/24 FINDINGS: Lines and Tubes: None Lungs: No focal consolidation. Pleura: No effusion. No pneumothorax. Cardiomediastinal contours: Unremarkable Bones: No acute osseous abnormality. IMPRESSION: No acute cardiopulmonary disease.
[2024-12-12 19:22] LABS: Basophils # (auto) 0 10 ^3/uL (0-0.2); Basophils % (auto) 0.8 % (0.0-2.0); Eosinophils # (auto) 0.1 10 ^3/uL (0-0.8); Eosinophils % (auto) 2.2 % (0.0-7.0); Hemoglobin 14.2 g/dL (12.2-16.2); Lymphocytes # (auto) 1.6 10 ^3/uL (0.4-5.4); Lymphocytes % (auto) 25.2 % (10.0-50.0); Mean Corpuscular Hemoglobin 32.6 pg (28.0-32.0); Mean Corpuscular Hgb Conc. 33.8 g/dL (32.0-36.0); Mean Corpuscular Volume 96.5 fL (80.0-100.0); Monocytes # (auto) 0.4 10 ^3/uL (0-1.3); Monocytes % (auto) 6.8 % (0.0-12.0); Neutrophils # (auto) 4.1 10 ^3/uL (1.6-8.6); Nucleated Red Blood Cells % 0.2 %; Platelet Count (auto) 213 10^3/uL (140-450); Red Blood Cells 4.36 10^6/uL (4.0-5.20); Red Cell Distribution Width 14.3 % (11.8-14.3); White Blood Cell 6.3 10^3/uL (4.4-10.8)
[2024-12-12 19:30] VITALS: PULSE 80; RESP 24; O2SAT 95
[2024-12-12 19:49] LABS: Alanine Aminotransferase 17 U/L (7-40); Albumin 4.5 g/dL (3.2-4.8); Anion Gap 13 (5-15); Aspartate Aminotransferase 29 U/L (13-40); BUN/Creatinine Ratio 16.3 (10.0-20.0); Blood Urea Nitrogen 16 mg/dL (9-23); Calcium 9.5 mg/dL (8.7-10.4); Carbon Dioxide 24 mmol/L (20-31); Chloride 104 mmol/L (98-107); Magnesium 2.1 mg/dL (1.6-2.6); Potassium 3.9 mmol/L (3.5-5.1); Sodium 141 mmol/L (136-145)
[2024-12-12 19:50] LABS: Bilirubin, Total 0.6 mg/dL (0.2-1.0); Total Protein 6.6 g/dL (5.7-8.2)
[2024-12-12 19:51] LABS: Alkaline Phosphatase 146 U/L (46-116); Glucose 158 mg/dL (74-106)
[2024-12-12] MEDS: ASPirin 325 MG TAB PO ONE (20:59)
[2024-12-12 22:15] LABS: Urine Bacteria None Seen /hpf (None Seen)
[2024-12-12 22:28] LABS: Urine Blood Negative /uL (Negative); Urine Clarity Clear (Clear); Urine Color Light-Yellow (Yellow); Urine Hyaline Cast FEW /lpf (0 - 2); Urine Protein, UAD Negative (Negative); Urine Specific Gravity 1.006 (1.001-1.035); Urine Squamous Epithelial Cell None Seen /hpf (<5); Urine Urobilinogen Normal (Negative); Urine WBC 12 /HPF (0-5)
[2024-12-13] MEDS ORDERED: ONDANSETRON HCL 4 MG/2 ML VIAL IV PRN (00:15)
[2024-12-13] MEDS ORDERED: MORPHINE SULFATE INJ 2 MG/ml SYRG IV PRN ×2 (00:15)
[2024-12-13] MEDS ORDERED: ACETAMINOPHEN 325 MG TAB PO PRN (00:15)
[2024-12-13] MEDS ORDERED: NITROGLYCERIN 0.4 MG SL TAB SL PRN (00:15)
--- NOTE | 2024-12-13 00:25 | DVHHPRES ---
History of Present Illness Resident Creating Document: SOPHY LANTIGUA RESIDENT History of Present Illness Jazmyne Gregg is a 73-year-old female with a PMH of SVT, NSTEMI, asthma, HLD, hypothyroidism status post thyroidectomy, DLD presented to the ED with the chief complaints of retrosternal tightness since today moaning. Patient reported yesterday she received RSV vaccination, having chills and body aches but today moaning while she is lying on the bed she started having chest tightness which is nonradiating, relieved by after taking nitroglycerin in the ED associated with nausea, vomiting, clammy and felt numbness in both arms. On arrival to ED patient found to have SVT, given diltiazem, returning to normal sinus rhythm. On my assessment patient denies fever, abdominal pain, dizziness, and other symptoms. Patient reported she has been admitted here with the same issue last month, which did this facility but this time the pain was little intense. 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 PMH: SVT, NSTEMI, asthma, HLD, hypothyroidism, PSH: Thyroidectomy, hernia repair Family history: Reviewed, noncontributory Social history: Lives at with the sister. Denies smoking, alcohol and other drug abuse Allergies: aspirin and codeine Home medications: Unable to recall Review of Systems Review of Systems Patient seen and examined at the bedside. Constitutional: Yes: Malaise Eyes: No: Pain, Vision change, Conjunctivae inflammation, Eyelid inflammation, Other, Redness ENT: No: Ear pain, Ear discharge, Nose pain, Nose discharge, Nose congestion, Mouth pain, Mouth swelling, Throat pain, Throat swelling, Other Respiratory: No: Cough, Dry, Shortness of breath, SOB with excertion, Wheezing, Hemoptysis, Pleuritic Pain, Sputum, Wheezing, Other Cardiovascular: Chest Pain, Palpitations Gastrointestinal: Nausea, Vomiting Genitourinary: No Dysuria, No Frequency, No Incontinence, No Hematuria, No Retention, No Other Musculoskeletal: shoulder pain (Left shoulder due to RSV vaccine received yesterday) Skin: No: Rash, Lesions, Jaundice, Bruising, Other Neurological: No: Weakness, Numbness, Incoordination, Change in speech, Confusion, Seizures, Other Allergies: Coded Allergies: Codeine (Verified Allergy, Mild, 1/20/25) Aspirin (Verified Allergy, Unknown, 12/12/24) Medications Current Medications Medications Dose Ordered Sig/Amita Route Start Time Stop Time Status Last Admin Dose Admin Sodium Chloride 1,000 ml @ 60 mls/hr [id number] IV 12/13/24 00:15 UNV Ondansetron HCl 4 mg Q4HP PRN IV 12/13/24 00:15 UNV Enoxaparin Sodium 40 mg DAILY SC 12/13/24 10:00 UNV Acetaminophen 650 mg Q6HP PRN PO 12/13/24 00:15 UNV Morphine Sulfate 2 mg Q4HPRN PRN IV 12/13/24 00:15 UNV Nitroglycerin 0.4 mg Q5MINP PRN SL 12/13/24 00:15 UNV Morphine Sulfate 2 mg Q30M PRN IV 12/13/24 00:15 UNV Exam Vital Signs Vital Signs Date Time Temp Pulse Resp B/P (MAP) Pulse Ox O2 Delivery O2 Flow Rate FiO2 12/12/24 19:03 75 12/12/24 19:02 96 Room Air* 0 21 12/12/24 19:00 97.2 19 90/50 (63) 97.2 Exam Pt is lying on bed General Appearance: Alert, Oriented X3, Cooperative, mild distress HEENT: Atraumatic, Mucous membranes moist/pink Respiratory: Clear to auscultation, Normal air movement, No added sounds Cardiovascular: Regular rate, Normal S1, Normal S2, No murmurs Abdominal: Active bowel sounds, Soft, no distention, no tenderness Extremities: No edema, Normal pulses, No tenderness/swelling Skin: No Significant rash, except past surgical scars Neuro: Normal speech, sensorimotor deficits none Psych/Mental Status: Mental status NL, Mood NL Nurse was there as sharperone during examination Labs/Xrays Labs Test 12/12/24 22:00 12/12/24 21:30 12/12/24 18:43 Range/Units Urine Color Light-yellow Yellow Urine Clarity Clear Clear Urine pH 5.0 5.0-9.0 Urine Specific [place] 1.006 1.001-1.035 Urine Protein Negative Negative Urine Ketones Negative Negative Urine Blood Negative Negative /uL Urine Nitrite Negative Negative Urine Bilirubin Negative Negative Urine Urobilinogen Normal Negative mg/dL Urine Leukocyte Esterase 1+ Negative /uL Urine RBC <1 0 - 4 /hpf Urine Microscopic WBC 12 H 0-5 /HPF Urine Squamous Epithelial Cells None seen <5 /hpf Urine Bacteria None seen None Seen /hpf Urine Hyaline Casts Few 0 - 2 /lpf Urine Glucose Normal Normal mg/dL Troponin I High Sensitivity 567 *H </=34 ng/L White Blood Count 6.3 4.4-10.8 10^3/uL Red Blood Count 4.36 4.0-5.20 10^6/uL Hemoglobin 14.2 12.2-16.2 g/dL Hematocrit 42.0 36.0-46.0 % Mean Corpuscular Volume 96.5 80.0-100.0 fL Mean Corpuscular Hemoglobin 32.6 H 28.0-32.0 pg Mean Corpuscular Hemoglobin Concent 33.8 32.0-36.0 g/dL Red Cell Distribution Width 14.3 11.8-14.3 % Platelet Count 213 140-450 10^3/uL Mean Platelet Volume 8.4 6.9-10.8 fL Neutrophils (%) (Auto) 65.0 37.0-80.0 % Lymphocytes (%) (Auto) 25.2 10.0-50.0 % Monocytes (%) (Auto) 6.8 0.0-12.0 % Eosinophils (%) (Auto) 2.2 0.0-7.0 % Basophils (%) (Auto) 0.8 0.0-2.0 % Neutrophils # (Auto) 4.1 1.6-8.6 10 ^3/uL Lymphocytes # (Auto) 1.6 0.4-5.4 10 ^3/uL Monocytes # (Auto) 0.4 0-1.3 10 ^3/uL Eosinophils # (Auto) 0.1 0-0.8 10 ^3/uL Basophils # (Auto) 0 0-0.2 10 ^3/uL Nucleated Red Blood Cells 0.2 % Sodium Level 141 136-145 mmol/L Potassium Level 3.9 3.5-5.1 mmol/L Chloride Level 104 98-107 mmol/L Carbon Dioxide Level 24 20-31 mmol/L Anion Gap 13 5-15 Blood Urea Nitrogen 16 9-23 mg/dL Creatinine 0.98 0.550-1.02 mg/dL Glomerular Filtration Rate Calc 61 >90 mL/min BUN/Creatinine Ratio 16.3 10.0-20.0 Serum Glucose 158 H 74-106 mg/dL Calcium Level 9.5 8.7-10.4 mg/dL Magnesium Level 2.1 1.6-2.6 mg/dL Total Bilirubin 0.6 0.2-1.0 mg/dL Aspartate Amino Transferase (AST) 29 13-40 U/L Alanine Aminotransferase (ALT) 17 7-40 U/L Alkaline Phosphatase 146 H 46-116 U/L B-Type Natriuretic Peptide 51.94 0-100 pg/mL Total Protein 6.6 5.7-8.2 g/dL Albumin 4.5 3.2-4.8 g/dL Assessment/Plan Assessment/Plan # Chest pain R/O ACS # ? NSTEMI - reviewed EKG, showed supraventricular tachycardia - troponins are elevated - chest pain protocol - currently giving aspirin, clopidogrel, nitroglycerin, morphine - consulted cardiology # paroxysmal supraventricular tachycardia - given diltiazem - converted to normal sinus rhythm - continuously monitor # hyperlipidemia -resume home meds # hypothyroidism due to thyroidectomy -resume home meds PUD PPX: Protonix VTE PPX: Lovenox Diet: Cardiac diet Goals of care discussed with the patient for more than 27 minutes: Full code status Case management discussed with Dr. Crespo, patient and nurse Plan discussed with: Patient My Orders Orders - SOPHY LANTIGUA RESIDENT Procedure Category Date Status Time Admit ADMIT 12/13/24 Transmitted 00:07 Allergies ANGELI 12/13/24 In Process 00:07 Code Status CODE 12/13/24 Transmitted 00:07 Sodium Chloride 0.9% PHA 12/13/24 In Process 00:15 Oxygen Per Hour RT 12/13/24 Transmitted 00:07 Ondansetron Hcl PHA 12/13/24 In Process (Zofran) 00:15 Enoxaparin Sodium PHA 12/13/24 In Process (Lovenox) 10:00 Complete Blood Count LAB 12/13/24 Logged 04:00 Comprehensive LAB 12/13/24 Logged Metabolic Panel 04:00 Cardiac DIET 12/13/24 Transmitted Diet-2gna,Lofat,Lochol Breakfast Condition: Stable ANGELI 12/13/24 In Process 00:07 Acetaminophen Tablet PHA 12/13/24 In Process (Tylenol Tablet) 00:15 Morphine Sulfate PHA 12/13/24 In Process Injection 00:15 Nitroglycerin PHA 12/13/24 In Process Sublingual (Ntrostat 00:15 Morphine Sulfate PHA 12/13/24 In Process Injection 00:15 Oxygen By Nasal RT 12/13/24 Transmitted Cannula 00:07 Stat Ekg For Chest [facility] 12/13/24 In Process Pain 00:07 Notify Of Changes [facility] 12/13/24 In Process From Base 00:07 Bi Analyst For [facility] 12/13/24 In Process 24 Hours 00:07 Emergency Dysrhythmia [facility] 12/13/24 In Process Protocol 00:07 Rhythm Strips Once [facility] 12/13/24 In Process Every Shift 00:07 Troponin-I Hs LAB 12/13/24 Logged 00:10 * Cardiology Consult CONS 12/13/24 Transmitted 00:10 Blood Alcohol LAB 12/13/24 Logged 00:10 B-Type Natriuretic LAB 12/13/24 Logged Peptide 00:10 Covid19 Antigen Karen LAB 12/13/24 Logged Magnesium LAB 12/13/24 Logged 00:10 PTPTT LAB 12/13/24 Logged 00:10 Free T4 (Free LAB 12/13/24 Logged Thyroxine) 00:10 Rapid Influenza A&B LAB 12/13/24 Logged 00:10 Drug Screen LAB 12/13/24 Logged 00:10 Urinalysis LAB 12/13/24 Logged 00:10 Clopidogrel Bisulfate PHA 12/13/24 In Process (Plavix) 10:00 Aspirin Tablet PHA 12/13/24 Pending 10:00 Pantoprazole PHA 12/13/24 Logged (Protonix) 10:00 Date of Service: Dec 13, 2024 Billing Provider: CELENA CRESPO MD Common Visit Codes: [id number] INP/OBS CARE (HIGH) Secondary Visit Codes: 57869-[id number] CARE PLAN 30 MINUTES SOPHY LANTIGUA RESIDENT Dec 13, 2024 00:25 CELENA CRESPO MD Dec 13, 2024 08:43
[2024-12-13] MEDS: SODIUM CHLORIDE 0.9% 1,000 ML IV SCH (00:34)
[2024-12-13] MEDS: CLOPIDOGREL BISULFATE 75 MG TAB PO ONE (00:34)
[2024-12-13 00:44] LABS: INR 1.16 (0.9-1.15); Partial Thromboplastin Time 28.2 SEC (24.5-34.5); Prothrombin Time 12.1 sec (9.3-11.8)
[2024-12-13 00:49] LABS: Magnesium 1.9 mg/dL (1.6-2.6)
[2024-12-13 00:54] LABS: Blood Alcohol < 3.0 mg/dL (<10)
[2024-12-13 01:11] LABS: COVID19 ANTIGEN SOFIA FIA NEGATIVE (NEGATIVE); Rapid Influenza A Negative (Negative); Rapid Influenza B Negative (Negative)
[2024-12-13 03:36] LABS: Basophils # (auto) 0 10 ^3/uL (0-0.2); Basophils % (auto) 1.1 % (0.0-2.0); Eosinophils # (auto) 0.1 10 ^3/uL (0-0.8); Eosinophils % (auto) 1.5 % (0.0-7.0); Hemoglobin 12.2 g/dL (12.2-16.2); Lymphocytes # (auto) 0.9 10 ^3/uL (0.4-5.4); Lymphocytes % (auto) 25.3 % (10.0-50.0); Mean Corpuscular Hemoglobin 32.1 pg (28.0-32.0); Mean Corpuscular Hgb Conc. 33.1 g/dL (32.0-36.0); Mean Corpuscular Volume 97.1 fL (80.0-100.0); Monocytes # (auto) 0.4 10 ^3/uL (0-1.3); Monocytes % (auto) 10.1 % (0.0-12.0); Neutrophils # (auto) 2.3 10 ^3/uL (1.6-8.6); Nucleated Red Blood Cells % 0.1 %; Platelet Count (auto) 170 10^3/uL (140-450); Red Blood Cells 3.81 10^6/uL (4.0-5.20); Red Cell Distribution Width 14.3 % (11.8-14.3); White Blood Cell 3.7 10^3/uL (4.4-10.8)
[2024-12-13 03:43] LABS: Alanine Aminotransferase 12 U/L (7-40); Albumin 3.6 g/dL (3.2-4.8); Alkaline Phosphatase 100 U/L (46-116); Anion Gap 7 (5-15); Aspartate Aminotransferase 23 U/L (13-40); Bilirubin, Total 0.6 mg/dL (0.2-1.0); Blood Urea Nitrogen 12 mg/dL (9-23); Carbon Dioxide 26 mmol/L (20-31); Potassium 3.8 mmol/L (3.5-5.1); Sodium 143 mmol/L (136-145)
[2024-12-13 03:58] LABS: Calcium 8.6 mg/dL (8.7-10.4); Chloride 110 mmol/L (98-107); Glucose 120 mg/dL (74-106); Total Protein 5.4 g/dL (5.7-8.2)
--- NOTE | 2024-12-13 06:32 | ECG ---
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
[2024-12-13 09:25] LABS: Triglycerides 69 mg/dL (< 150)
[2024-12-13 09:26] LABS: Cholesterol 100 mg/dL (< 200); LDL Cholesterol 42 mg/dL (< 100)
[2024-12-13 09:27] LABS: HDL Cholesterol 45 mg/dL (40-59)
[2024-12-13 09:34] LABS: Amphetamine Screen, Urine Neg (NEGATIVE); Barbiturate Scree,Urine Neg (NEGATIVE); Benzodiazephine Screen, Urine Neg (NEGATIVE); Cannabinoid Screen, Urine Neg (NEGATIVE); Cocaine Screen, Urine Neg (NEGATIVE); Opiate Scree,Urine Neg (NEGATIVE); Phencyclidine Screen, Urine Neg (NEGATIVE)
[2024-12-13] MEDS: ASPirin 81 mg TAB PO SCH (09:52)
[2024-12-13] MEDS: CLOPIDOGREL BISULFATE 75 MG TAB PO SCH (09:53)
[2024-12-13] MEDS: PANTOPRAZOLE 40 MG/10 ML VIAL INJ IV SCH (09:53)
[2024-12-13] MEDS: ENOXAPARIN SOD 40 MG/0.4 ML SYRINGE SC SCH (09:53)
[2024-12-13] MEDS: ENOXAPARIN SOD 100 MG/1 ML SYRINGE SC ONE (11:16)
[2024-12-13] MEDS: ENOXAPARIN SOD 40 MG/0.4 ML SYRINGE SC ONE (11:16)
--- NOTE | 2024-12-13 11:40 | DVHCONRES ---
Date Seen: Dec 13, 2024 Resident Creating Document: ROZINA ROTH RESIDENT Referring Physician Dr. Currie, resident Reason for Consultation NSTEMI History of Present Illness This is a 73-year-old female who comes into the ED with chief complain of chest pain. She has a past medical history relevant for asthma, hyperlipidemia, hypothyroidism, SVT. Past surgical history relevant for thyroidectomy, hernia repair. Family history: Unremarkable Social history: Denies smoking, alcohol drinking or any illicit drug abuse. Patient states that yesterday she started having severe chest pain, midsternal, localized, pressure-like, associated with nausea, vomiting, diaphoresis, lightheadedness, bilateral arm numbness. She stated that it lasted less than an hour, and it subsided with medications provided in the ED, she also mentioned that the pain got worse on exertion. She denied any shortness of breath, but she does state that she had the has been vaccine applied two days ago and she was experiencing chills, and body aches. On arrival to the ED, patient was noted to be in SVT, diltiazem was given, she returned to R. Patient was also given aspirin 325 mg p.o., normal saline, Zofran. Blood work revealed elevating troponins, at [phone]. BNP was 125. Chest x-ray was unremarkable. EKG did not show any ST-T wave changes. On my assessment, patient currently denies any chest pain, states feeling better than on admission. Family History: Osteoporosis G8 MOTHER Allergies: Coded Allergies: Codeine (Verified Allergy, Mild, 11/13/24) Aspirin (Verified Allergy, Unknown, 12/12/24) Home Meds Active Scripts Aspirin (ASPIRIN 81) 81 Mg Tab, 81 MG PO DAILY for 30 Days, #30 TAB 3 Refills Prov:SUSY ELLSWORTH MD 11/15/24 Azithromycin (Zithromax Tri-Bijan) 500 Mg Tab, 500 MG PO DAILY for 3 Days, #3 TAB Prov:SUSY ELLSWORTH MD 11/15/24 Prednisone (Prednisone) 20 Mg Tab, 20 MG PO QAM for 5 Days, #10 MG Prov:SUSY ELLSWORTH MD 11/15/24 Reported Medications Atorvastatin Calcium (ATORVASTATIN CALCIUM) 20 Mg Tab, 1 TAB PO DAILY for 100 Days, #100 1/21/25 Levothyroxine Sodium (Levothyroxine Sodium) 137 Mcg Tab, 1 TAB PO UD for 100 Days, #50 11/14/24 Current Medications Current Medications Medications (Trade) Dose Ordered Sig/Amita Route PRN Reason Start Time Stop Time Status Last Admin Sodium Chloride 1,000 ml @ 60 mls/hr [id number] IV 12/13/24 00:15 12/13/24 08:14 DC 12/13/24 00:34 Ondansetron HCl (Zofran) 4 mg Q4HP PRN IV NAUSEA / VOMITING 12/13/24 00:15 Enoxaparin Sodium (Lovenox) 40 mg DAILY SC 12/13/24 10:00 12/13/24 10:40 DC 12/13/24 09:53 Acetaminophen (Tylenol Tablet) 650 mg Q6HP PRN PO PAIN SCALE 1-3 OR TEMP>100.4 12/13/24 00:15 Morphine Sulfate 2 mg Q4HPRN PRN IV SEVERE PAIN (7-10 PAIN SCALE) 12/13/24 00:15 Nitroglycerin (Ntrostat Sublingual) 0.4 mg Q5MINP PRN SL FOR CHEST PAIN 12/13/24 00:15 Morphine Sulfate 2 mg Q30M PRN IV FOR CHEST PAIN 12/13/24 00:15 Clopidogrel Bisulfate (Plavix) 75 mg DAILY PO 12/13/24 10:00 12/13/24 09:53 Aspirin 81 mg DAILY PO 12/13/24 10:00 12/13/24 09:52 Pantoprazole Sodium (Protonix) 40 mg DAILY IV 12/13/24 10:00 12/13/24 09:53 Review of Systems Constitutional: Patient denies fevers, chills, sweats and weight changes. Eyes: Patient denies any visual symptoms. Ears, Nose, and Throat: No difficulties with hearing. No symptoms of rhinitis or sore throat. Cardiovascular: Patient denies chest pains, palpitations, orthopnea and paroxysmal nocturnal dyspnea. Respiratory: No dyspnea on exertion, no wheezing or cough. GI: No nausea, vomiting, diarrhea, constipation, abdominal pain, hematochezia or melena. : No urinary hesitancy or dribbling. No nocturia or urinary frequency. No abnormal urethral discharge. Musculoskeletal: No myalgias, arthralgias or edema. Neurologic: No chronic headaches, no seizures. Patient denies numbness, tingling or weakness. Psychiatric: Patient denies problems with mood disturbance. No problems with anxiety. Endocrine: No excessive urination or excessive thirst. Dermatologic: Patient denies any rashes or skin changes. Vital Signs Vital Signs Date Time Temp Pulse Resp B/P (MAP) Pulse Ox O2 Delivery O2 Flow Rate FiO2 12/13/24 11:00 58 24 135/48 (77) 95 12/13/24 07:45 Room Air* 0 21 12/13/24 07:40 98.4 98.4 Physical Exam General: Awake, alert, comfortable appearing, in no acute distress. HEENT: Head is normocephalic and atraumatic. Pupils are equal, round, and reactive to light. Extraocular muscles are intact. No nasal discharge. No facial trauma. Intraoral exam shows moist mucous membranes with no tonsillar enlargement or exudate. Neck: Supple with no cervical lymphadenopathy No meningismus. No goiter. Heart: Regular rate without murmur, rub, or gallop. Lungs: Equal breath sounds bilaterally with no wheezing, rales, or rhonchi. There is no chest wall tenderness or instability. Abdomen: No external sign of injury. Bowel sounds are present. Abdomen is soft, nontender. No rebound, no guarding, no rigidity. There are no palpable masses. There is no flank pain on exam. Extremities: Strong peripheral pulses. There is no clubbing, no cyanosis, and no edema. Skin: No rash. Neurologic: Cranial nerves II-XII intact without motor, sensory, or cerebellar deficit, no asterixis. Labs/Diagnostic Data Labs Test 12/13/24 09:24 12/13/24 08:31 12/13/24 03:00 12/13/24 00:35 Range/Units Troponin I High Sensitivity 1116 *H </=34 ng/L Triglycerides Level 69 < 150 mg/dL Cholesterol Level 100 < 200 mg/dL LDL Cholesterol 42 < 100 mg/dL HDL Cholesterol 45 40-59 mg/dL Thyroid Stimulating Hormone (TSH) 3.41 0.55-4.78 uIU/mL White Blood Count 3.7 #L 4.4-10.8 10^3/uL Red Blood Count 3.81 L 4.0-5.20 10^6/uL Hemoglobin 12.2 12.2-16.2 g/dL Hematocrit 37.0 # 36.0-46.0 % Mean Corpuscular Volume 97.1 80.0-100.0 fL Mean Corpuscular Hemoglobin 32.1 H 28.0-32.0 pg Mean Corpuscular Hemoglobin Concent 33.1 32.0-36.0 g/dL Red Cell Distribution Width 14.3 11.8-14.3 % Platelet Count 170 140-450 10^3/uL Mean Platelet Volume 8.1 6.9-10.8 fL Neutrophils (%) (Auto) 62.0 37.0-80.0 % Lymphocytes (%) (Auto) 25.3 10.0-50.0 % Monocytes (%) (Auto) 10.1 0.0-12.0 % Eosinophils (%) (Auto) 1.5 0.0-7.0 % Basophils (%) (Auto) 1.1 0.0-2.0 % Neutrophils # (Auto) 2.3 1.6-8.6 10 ^3/uL Lymphocytes # (Auto) 0.9 0.4-5.4 10 ^3/uL Monocytes # (Auto) 0.4 0-1.3 10 ^3/uL Eosinophils # (Auto) 0.1 0-0.8 10 ^3/uL Basophils # (Auto) 0 0-0.2 10 ^3/uL Nucleated Red Blood Cells 0.1 % Sodium Level 143 136-145 mmol/L Potassium Level 3.8 3.5-5.1 mmol/L Chloride Level 110 H 98-107 mmol/L Carbon Dioxide Level 26 20-31 mmol/L Anion Gap 7 5-15 Blood Urea Nitrogen 12 9-23 mg/dL Creatinine 0.80 0.550-1.02 mg/dL Glomerular Filtration Rate Calc 77 >90 mL/min BUN/Creatinine Ratio 15.0 10.0-20.0 Serum Glucose 120 H 74-106 mg/dL Calcium Level 8.6 L 8.7-10.4 mg/dL Total Bilirubin 0.6 0.2-1.0 mg/dL Aspartate Amino Transferase (AST) 23 13-40 U/L Alanine Aminotransferase (ALT) 12 7-40 U/L Alkaline Phosphatase 100 46-116 U/L Total Protein 5.4 L 5.7-8.2 g/dL Albumin 3.6 3.2-4.8 g/dL Influenza Type A Antigen Negative Negative Influenza Type B Antigen Negative Negative SARS-CoV-2 Antigen (Rapid) Negative NEGATIVE Test 12/13/24 00:17 12/12/24 22:00 Range/Units Prothrombin Time 12.1 H 9.3-11.8 sec Prothrombin Time INR 1.16 H 0.9-1.15 Activated Partial Thromboplast Time 28.2 24.5-34.5 SEC Magnesium Level 1.9 1.6-2.6 mg/dL B-Type Natriuretic Peptide 125.75 0-100 pg/mL Free Thyroxine (T4) Calculated 0.85 L 0.89-1.76 ng/dL Plasma/Serum Blood Alcohol < 3.0 <10 mg/dL Urine Color Light-yellow Yellow Urine Clarity Clear Clear Urine pH 5.0 5.0-9.0 Urine Specific [place] 1.006 1.001-1.035 Urine Protein Negative Negative Urine Ketones Negative Negative Urine Blood Negative Negative /uL Urine Nitrite Negative Negative Urine Bilirubin Negative Negative Urine Urobilinogen Normal Negative mg/dL Urine Leukocyte Esterase 1+ Negative /uL Urine RBC <1 0 - 4 /hpf Urine Microscopic WBC 12 H 0-5 /HPF Urine Squamous Epithelial Cells None seen <5 /hpf Urine Bacteria None seen None Seen /hpf Urine Hyaline Casts Few 0 - 2 /lpf Urine Glucose Normal Normal mg/dL Urine Opiates Screen Neg NEGATIVE Urine Fentanyl Screen Neg NEGATIVE Urine Barbiturates Screen Neg NEGATIVE Urine Phencyclidine Screen Neg NEGATIVE Urine Amphetamines Screen Neg NEGATIVE Urine Benzodiazepines Screen Neg NEGATIVE Urine Cocaine Screen Neg NEGATIVE Urine Cannabinoids Screen Neg NEGATIVE Assessment NSTEMI, likely type 1 Supraventricular tachycardia s/p chemical cardioversion Hypothyroidism, Hx of total thyroidectomy Dyslipidemia Asthma Obesity Plan/Recommendation Patient has been scheduled for left heart catheterization for tomorrow at 1:00 p.m., NPO after midnight Lovenox 1 milligram/kilogram sc once Aspirin 81 mg p.o. q.d. Chest pain protocol Echo from reveals an ejection fraction of 60%, mild LVH, [id number] left atrium enlargement. Case was discussed with Dr. Chan pt seen with cv team agree with plan formulated together recommend LHC as trop is quite high even in setting of svt pt not strted on avn agents in past for svt? needs beta lucia for suspected avnrt and possible ep ablation pt agrees with plan after informed consent Plan discussed with: Patient ROZINA ROTH RESIDENT Dec 13, 2024 11:40 HUDSON CHAN MD Dec 13, 2024 15:49
--- NOTE | 2024-12-13 14:25 | DVHPN2 ---
Progress Note Date Seen: Dec 13, 2024 Medical Necessity Reason Pt with a Central, PICC or Fol: No Subjective Patient reports: No new complaints Review of Systems: HEENT:Normal, CVS:Normal, RESPIRATORY:Normal, GI:Normal, :Normal, MSK:Normal, NEURO:Normal Objective vital signs Vital Sign Date Time Temp Pulse Resp B/P (MAP) Pulse Ox O2 Delivery O2 Flow Rate FiO2 12/13/24 14:04 58 12/13/24 13:00 15 115/43 (67) 96 12/13/24 07:45 Room Air* 0 21 12/13/24 07:40 98.4 98.4 Total Intake and Output 12/12/24 12/12/24 12/13/24 15:00 23:00 07:00 Intake Total 1000 ml Balance 1000 ml medications Current Medications Medications Dose Ordered Sig/Amita Route Start Time Stop Time Status Last Admin Dose Admin Ondansetron HCl 4 mg Q4HP PRN IV 12/13/24 00:15 Acetaminophen 650 mg Q6HP PRN PO 12/13/24 00:15 Morphine Sulfate 2 mg Q4HPRN PRN IV 12/13/24 00:15 Nitroglycerin 0.4 mg Q5MINP PRN SL 12/13/24 00:15 Morphine Sulfate 2 mg Q30M PRN IV 12/13/24 00:15 Aspirin 81 mg DAILY PO 12/13/24 10:00 12/13/24 09:52 81 MG Pantoprazole Sodium 40 mg DAILY IV 12/13/24 10:00 12/13/24 09:53 40 MG Examination: GENERAL:Normal, HEENT:Normal, NECK:Normal, LUNGS:Normal, CVS:Normal, ABDOMEN:Normal, MSK:Normal, SKIN:Normal, NEURO:Normal, :Normal laboratory and microbiology Laboratory Tests 12/13/24 03:00 Test 12/13/24 03:00 Range/Units Serum Glucose 120 H 74-106 mg/dL Problem List/Assessment/Plan Problem List/Assessment/Plan #1 nstemi: c angio in am #2 svt #3 hypothyroidism: cont meds #4 obesity #5 asthma advance care planning- full code- time spent 19 mins Plan discussed with: Patient My Orders My Orders Orders - SUSY ELLSWORTH MD Procedure Category Date Status Time Levothyroxine Tablet PHA 12/14/24 Verified (Synthroid Tablet) 06:00 Atorvastatin (Lipitor) PHA 12/13/24 Verified 22:00 Basic Metabolic Panel LAB 12/14/24 Verified 06:00 Magnesium LAB 12/14/24 Verified 05:00 Date of Service: Dec 13, 2024 Billing Provider: SUSY ELLSWORTH MD Common Visit Codes: [id number] INP/OBS CARE(HIGH) Secondary Visit Codes: [id number] CARE PLAN 30 MINUTES SUSY ELLSWORTH MD Dec 13, 2024 14:25
[2024-12-13 19:38] VITALS: PULSE 60; RESP 18; O2SAT 95
[2024-12-13 21:51] VITALS: BP 141/60; PULSE 60; RESP 18; TEMP 97.9; O2SAT 96
[2024-12-13 22:09] VITALS: PULSE 60; RESP 18; TEMP 97.9; O2SAT 96
[2024-12-13] MEDS: ATORVASTATIN 20 MG TAB PO SCH (23:08)
[2024-12-14] VITALS (13 sets, daily range): BP systolic 123–137; BP diastolic 41–93; PULSE 44–71; RESP 12–20; TEMP 97.5–98.7; O2SAT 93–96
[2024-12-14] MEDS: LEVOTHYROXINE SODIUM 112 MCG TAB PO SCH (06:00)
[2024-12-14] MEDS: LEVOTHYROXINE SODIUM 25 MCG TAB PO SCH (06:00)
[2024-12-14 11:10] LABS: Calcium 8.8 mg/dL (8.7-10.4); Potassium 3.6 mmol/L (3.5-5.1); Sodium 143 mmol/L (136-145)
[2024-12-14 11:11] LABS: Anion Gap 7 (5-15); Carbon Dioxide 27 mmol/L (20-31)
[2024-12-14 11:16] LABS: BUN/Creatinine Ratio 12.3 (10.0-20.0); Glucose 86 mg/dL (74-106)
[2024-12-14 11:18] LABS: Blood Urea Nitrogen 8 mg/dL (9-23); Chloride 109 mmol/L (98-107)
[2024-12-14] MEDS: fentaNYL CITRATE 100 MCG/2 ML VL ONE (14:02)
[2024-12-14] MEDS: ANGIOMAX 250 MG VIAL IV ONE (14:02)
[2024-12-14] MEDS: SODIUM CHL 0.9% 0 ML ONE (14:03)
[2024-12-14] MEDS: IODIXANOL 320MG/ML 100ML BTL IV ONE (14:32)
[2024-12-14] MEDS: MIDAZOLAM HCL 2MG/2ML 2ml VIAL (1mg/ml) ONE (14:32)
[2024-12-14] MEDS: LIDOCAINE 2%HCL (LOCAL ANESTH.) INJ 20ML MDV ONE (14:32)
[2024-12-14] MEDS: HEPARIN SODIUM (PORCINE) 5000 UNITS/ML 1ML VIAL ONE (14:32)
[2024-12-14] MEDS: VERAPAMIL 2.5MG/ML INJ 2ML VIAL IV ONE (14:34)
--- NOTE | 2024-12-14 14:57 | DVHPN2 ---
Progress Note Date Seen: Dec 14, 2024 Medical Necessity Reason Pt with a Central, PICC or Fol: No Subjective Patient reports: Feels better Objective vital signs Vital Sign Date Time Temp Pulse Resp B/P (MAP) Pulse Ox O2 Delivery O2 Flow Rate FiO2 12/14/24 13:00 98.1 53 18 125/52 (76) 96 98.1 12/14/24 08:00 Room Air* 0 21 Total Intake and Output 12/13/24 12/13/24 12/14/24 14:59 22:59 06:59 Intake Total 60 ml 100 ml Balance 60 ml 100 ml medications Current Medications Medications Dose Ordered Sig/Amita Route Start Time Stop Time Status Last Admin Dose Admin Ondansetron HCl 4 mg Q4HP PRN IV 12/13/24 00:15 Acetaminophen 650 mg Q6HP PRN PO 12/13/24 00:15 Morphine Sulfate 2 mg Q4HPRN PRN IV 12/13/24 00:15 Nitroglycerin 0.4 mg Q5MINP PRN SL 12/13/24 00:15 Morphine Sulfate 2 mg Q30M PRN IV 12/13/24 00:15 Aspirin 81 mg DAILY PO 12/13/24 10:00 12/13/24 09:52 81 MG Pantoprazole Sodium 40 mg DAILY IV 12/13/24 10:00 12/14/24 09:41 40 MG Levothyroxine Sodium 112 mcg QAM@0600 PO 12/14/24 06:00 Atorvastatin Calcium 20 mg HS PO 12/13/24 22:00 12/13/24 23:08 20 MG Levothyroxine Sodium 25 mcg QAM@0600 PO 12/14/24 06:00 Examination: GENERAL:Abnormal, HEENT:Abnormal, LUNGS:Abnormal, CVS:Abnormal, ABDOMEN:Abnormal laboratory and microbiology Laboratory Tests 12/14/24 09:14 12/13/24 03:00 Test 12/14/24 09:14 Range/Units Serum Glucose 86 74-106 mg/dL Problem List/Assessment/Plan Problem List/Assessment/Plan nstemi SVT prob AVNRT HTN HL negative LHC dc home on BB and outpt fu with treviño for ep ablation Plan discussed with: Patient My Orders My Orders Orders - HUDSON CHAN MD Procedure Category Date Status Time Cl Left Heart Cath CL 2/20/25 Taken 07:22 Date of Service: Dec 14, 2024 Billing Provider: HUDSON CHAN MD Common Visit Codes: NOT BILLABLE HUDSON CHAN MD Dec 14, 2024 14:57
--- NOTE | 2024-12-14 14:58 | DVHOP2 ---
Operative Report Operative Report CARDIAC FLYING I INSTRUCTOR PROCEDURE REPORT [place], [place] Date of Service: 12/14/24 It Software Engineer: Hudson Chan MD PROCEDURES PERFORMED: Coronary angiogram, left heart catheterization, conscious sedation administration and supervision, less than 15 minutes; fluoroscopy use and interpretation. PREOPERATIVE DIAGNOSES: nstemi POSTOP DIAGNOSIS: nstemi DESCRIPTION OF PROCEDURE: The patient or appropriate family signed informed consent understanding the risks, benefits and alternatives of the procedure, they wished to proceed. The patient was brought to the cardiac label coder in n.p.o. state. The patient was prepped in a sterile fashion. Sedation was used per cardiac cath protocol. I administered 2 mL of 2% lidocaine to the right wrist. With an antegrade front wall puncture. I cannulated the right radial artery and placed a 6-[place] slender. Next, an intra-arterial spasmolytic was administered. Next, a - 5 [place] catheter andand were used for coronary angiogram and LVEDP measurement and pressure pullback. At the completion of procedure, all guides and wires were removed, and there were no immediate complications. 4000 U of IV heparin given. FINDINGS: RCA: Moderate vessel off the right sinus of Valsalva, there is no severe flow limiting stenosis. LEFT MAIN: Moderate size left main, it bifurcates into LAD and circumflex. no severe stenosis CIRCUMFLEX: Moderate caliber vessel coming off the left main with no flow limiting stenosis. LAD: LAD is a moderate caliber vessel coming of the left main. LVEDP of 10 mmhg no severe epicardial CAD HUDSON CHAN MD Dec 14, 2024 14:58
--- NOTE | 2024-12-14 14:59 | DVHPN2 ---
Progress Note Date Seen: Dec 14, 2024 Medical Necessity Reason Pt with a Central, PICC or Fol: No Subjective Patient reports: No new complaints Review of Systems: HEENT:Normal, CVS:Normal, RESPIRATORY:Normal, GI:Normal, :Normal, MSK:Normal, NEURO:Normal Objective vital signs Vital Sign Date Time Temp Pulse Resp B/P (MAP) Pulse Ox O2 Delivery O2 Flow Rate FiO2 12/14/24 13:00 98.1 53 18 125/52 (76) 96 98.1 12/14/24 08:00 Room Air* 0 21 Total Intake and Output 12/13/24 12/13/24 12/14/24 15:00 23:00 07:00 Intake Total 60 ml 100 ml Balance 60 ml 100 ml medications Current Medications Medications Dose Ordered Sig/Amita Route Start Time Stop Time Status Last Admin Dose Admin Ondansetron HCl 4 mg Q4HP PRN IV 12/13/24 00:15 Acetaminophen 650 mg Q6HP PRN PO 12/13/24 00:15 Morphine Sulfate 2 mg Q4HPRN PRN IV 12/13/24 00:15 Nitroglycerin 0.4 mg Q5MINP PRN SL 12/13/24 00:15 Morphine Sulfate 2 mg Q30M PRN IV 12/13/24 00:15 Aspirin 81 mg DAILY PO 12/13/24 10:00 12/13/24 09:52 81 MG Pantoprazole Sodium 40 mg DAILY IV 12/13/24 10:00 12/14/24 09:41 40 MG Levothyroxine Sodium 112 mcg QAM@0600 PO 12/14/24 06:00 Atorvastatin Calcium 20 mg HS PO 12/13/24 22:00 12/13/24 23:08 20 MG Levothyroxine Sodium 25 mcg QAM@0600 PO 12/14/24 06:00 Examination: GENERAL:Normal, HEENT:Normal, NECK:Normal, LUNGS:Normal, CVS:Normal, ABDOMEN:Normal, MSK:Normal, SKIN:Normal, NEURO:Normal, :Normal laboratory and microbiology Laboratory Tests 12/14/24 09:14 12/13/24 03:00 Test 12/14/24 09:14 Range/Units Serum Glucose 86 74-106 mg/dL Problem List/Assessment/Plan Problem List/Assessment/Plan #1 nstemi: c angio today #2 svt #3 hypothyroidism: cont meds #4 obesity #5 asthma #6 s/p recent covid 19 advance care planning- full code- time spent 19 mins Plan discussed with: Other (rn) My Orders My Orders Orders - SUSY ELLSWORTH MD Procedure Category Date Status Time Levothyroxine Tablet PHA 12/14/24 In Process (Synthroid Tablet) 06:00 Date of Service: Dec 14, 2024 Billing Provider: SUSY ELLSWORTH MD Common Visit Codes: [id number] INP/OBS CARE(HIGH) SUSY ELLSWORTH MD Dec 14, 2024 14:59
[2024-12-15] VITALS (7 sets, daily range): BP systolic 97–145; BP diastolic 55–76; PULSE 49–205; RESP 16–20; TEMP 97.4–97.9; O2SAT 94–97
[2024-12-15 05:32] LABS: Basophils # (auto) 0 10 ^3/uL (0-0.2); Basophils % (auto) 0.8 % (0.0-2.0); Eosinophils # (auto) 0.2 10 ^3/uL (0-0.8); Hematocrit 37.8 % (36.0-46.0); Hemoglobin 12.8 g/dL (12.2-16.2); Lymphocytes # (auto) 1.1 10 ^3/uL (0.4-5.4); Lymphocytes % (auto) 32.5 % (10.0-50.0); Mean Corpuscular Hemoglobin 32.6 pg (28.0-32.0); Mean Corpuscular Hgb Conc. 33.9 g/dL (32.0-36.0); Mean Corpuscular Volume 96.2 fL (80.0-100.0); Monocytes # (auto) 0.3 10 ^3/uL (0-1.3); Monocytes % (auto) 10.2 % (0.0-12.0); Neutrophils # (auto) 1.7 10 ^3/uL (1.6-8.6); Neutrophils % (auto) 50.5 % (37.0-80.0); Nucleated Red Blood Cells % 0.3 %; Platelet Count (auto) 211 10^3/uL (140-450); Red Blood Cells 3.93 10^6/uL (4.0-5.20); Red Cell Distribution Width 13.9 % (11.8-14.3); White Blood Cell 3.3 10^3/uL (4.4-10.8)
[2024-12-15 05:39] LABS: Potassium 3.6 mmol/L (3.5-5.1); Sodium 142 mmol/L (136-145)
[2024-12-15 05:40] LABS: Anion Gap 9 (5-15); Calcium 8.8 mg/dL (8.7-10.4); Carbon Dioxide 25 mmol/L (20-31)
[2024-12-15 05:41] LABS: Chloride 108 mmol/L (98-107)
[2024-12-15 05:45] LABS: BUN/Creatinine Ratio 15.4 (10.0-20.0); Blood Urea Nitrogen 10 mg/dL (9-23); Glucose 91 mg/dL (74-106)
== END 2024-12-15 14:06 | disposition home or self-care (01) | DRG 280 ==
LOC: ER 18:04 → OVERFLOW 12-13 00:07 → TELE-WESTW 12-13 21:51
PROVIDERS: ADMIT Hospitalist; ATTEND Hospitalist
PROC: 4A023N7 Measurement of Cardiac Sampling and Pressure, Left Heart, Percutaneous Approach (ICD-10-PCS; principal; 2024-12-14)
PROC: B211YZZ Fluoroscopy of Multiple Coronary Arteries using Other Contrast (ICD-10-PCS; 2024-12-14)
DX: I21.4 Non-ST elevation (NSTEMI) myocardial infarction (principal); R65.11 Systemic inflammatory response syndrome (SIRS) of non-infectious origin with acute organ dysfunction; I47.10 Supraventricular tachycardia, unspecified; Z68.1 Body mass index [BMI] 19.9 or less, adult; E78.5 Hyperlipidemia, unspecified; Z20.822 Contact with and (suspected) exposure to COVID-19; J45.909 Unspecified asthma, uncomplicated; I48.91 Unspecified atrial fibrillation; E66.9 Obesity, unspecified; E03.9 Hypothyroidism, unspecified; Z79.899 Other long term (current) drug therapy
CPT/HCPCS: 36415; 71045; 80048; 80053; 80061; 80307; 80320; 81001; 83735; 83880; 84439; 84443; 84484; 85025; 85610; 85730; 86850; 86900; 86901; 87426; 87804; 93005; 93458; 96361; 96374; 96375; 99152; 99291; G0378; J2250; J2405; J2470; Q9967

== ENCOUNTER 2025-05-09 19:39 | Emergency (ER) | payer OTHER ==
[~2025-05-09] VITALS: Ht 157.5 cm; Wt 83.3 kg
--- NOTE | 2025-05-09 20:09 | ED.PDOC ---
Back pain HPI HPI Comments C/C: RIGHT HAND PAIN AND SWELLING FOR THE PAST WEEK AFTER GETTING HER HAND CAUGHT ON HER FENCE AT HOME. PUNCTURE WOUND TO INNER FINGER. BRUISING NOTED. ALL VSS. PER PATIENT, JASON TOLD PATIENT AFTER XRAY THAT SHE NEEDED TO COME TO THE ER TO R/O INFECTION IN THE HAND. Time Seen by MD: 19:45 Primary Care Provider: ? Reviewed Notes: Nurses Notes, Medications, Allergies Allergies: Coded Allergies: Codeine (Verified Allergy, Mild, SLEEPY , 12/13/24) Aspirin (Verified Allergy, Unknown, 05/09/25) Home Meds Active Scripts Aspirin (ASPIRIN 81) 81 Mg Tab, 81 MG PO DAILY for 30 Days, #30 TAB 3 Refills Prov:SUSY ELLSWORTH MD 11/15/24 Azithromycin (Zithromax Tri-Bijan) 500 Mg Tab, 500 MG PO DAILY for 3 Days, #3 TAB Prov:SUSY ELLSWORTH MD 11/15/24 Prednisone (Prednisone) 20 Mg Tab, 20 MG PO QAM for 5 Days, #10 MG Prov:SUSY ELLSWORTH MD 11/15/24 Reported Medications Atorvastatin Calcium (ATORVASTATIN CALCIUM) 20 Mg Tab, 1 TAB PO DAILY for 100 Days, #100 11/14/24 Levothyroxine Sodium (Levothyroxine Sodium) 137 Mcg Tab, 1 TAB PO UD for 100 Days, #50 11/14/24 Information Source: Patient Past Medical History PAST MEDICAL HISTORY: Asthma, High Lipids, MT, Thyroid Surgical History: Hernia Repair, Thyroidectomy 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 Family History Family History: Reviewed,noncontributory to illness, No family hx of Cancer, No family hx of DM, No family hx of Heart eb, No family hx of HTN, No family hx ofKidney eb, No family hx of Liver eb, No family hx of Lung eb, No family hx of Stroke Social History Smoker: Non-Smoker Alcohol: Denies ETOH Use Drugs: Denies Drug Use Lives In: Home Constitutional: denies: chills, diaphoresis, fatigue, fever, malaise, sweats, weakness, others EENTM: denies: blurred vision, double vision, ear bleeding, ear discharge, ear drainage, ear pain, ear ringing, eye pain, eye redness, hearing loss, mouth pain, mouth swelling, nasal discharge, nose bleeding, nose congestion, nose pain, photophobia, tearing, throat pain, throat swelling, voice changes, others Respiratory: denies: cough, hemoptysis, orthopnea, SOB at rest, shortness of breath, SOB with excertion, stridor, wheezing, others Cardiovascular: denies: chest pain, dizzy spells, diaphoresis, Dyspnea on exertion, edema, irregular heart beat, left arm pain, lightheadedness, palpitations, PND, syncope, others Gastrointestinal: denies: abdomen distended, abdominal pain, blood streaked bowels, constipated, diarrhea, dysphagia, difficulty swallowing, hematemesis, melena, nausea, poor appetite, poor fluid intake, rectal bleeding, rectal pain, vomiting, others Genitourinary: denies: abnormal vagina bleeding, burning, dyspareunia, dysuria, flank pain, frequency, hematuria, incontinence, pain, , vagina discharge, urgency, others Neurological: denies: dizziness, fainting, headache, left sided numbness, left sided weakness, numbness, paresthesia, pre-existing deficit, right sided numbness, right sided weakness, seizure, speech problems, tingling, tremors, weakness, others Musculoskeletal: reports: joint pain, joint swelling; denies: back pain, gout, muscle pain, muscle stiffness, neck pain, others Integumetry: reports: bruises; denies: change in color, change in hair/nails, dryness, laceration, lesions, lumps, rash, wounds, others Allergic/Immunocompromised: denies: Difficulty Healing, Frequent Infections, Hives, Itching, others Hematologic/Lymphatic: denies: anemia, blood clots, easy bleeding, easy bruising, swollen glands, others Endocrine: denies: excessive hunger, excessive sweating, excessive thirst, excessive urination, flushing, intolerance to cold, intolerance to heat, unexplained weight gain, unexplained weight loss, others Psychiatric: denies: anxiety, bipolar disorder, depression, hopeless, panic disorder, schizophrenia, sleepless, suicidal, others Physical Exam General Appearance: No Apparent Distress, Normal HEENT: Pharynx Normal Neck: Full Range of Motion, Non-Tender Respiratory: Lungs Clear, No Respiratory Distress, Normal Breath Sounds Cardiovascular: No Edema, No JVD, No Murmur, No Gallop, Normal Peripheral Pulses, Regular Rate/Rhythm Breast Exam: Deferred Gastrointestinal: Non Tender, Soft Genitalia: Deferred Pelvic: Deferred Rectal: Deferred Extremities: Normal capillary refill, Normal range of motion Musculoskeletal : Location: Right Extremity Location: Hand (MODERATE EDEMA 3RD 4TH AND 5TH FINGERS DISTAL BASE AND PALM ASPECT. MODERATE ECCHYMOSIS NOTED MODERATE TENDERNESS ON PALPATION. DECREASED RANGE OF MOTION STRENGTH AND SENSORY INTACT. NOTED SCABBED OVER PUNCTURE WOUND PROXIMAL 3RD DIGIT) Apperance: Normal Neurologic: Alert, No Motor Deficits, Normal Affect, Normal Mood, No Sensory Deficits Cerebellar Function: Normal Reflexes: Normal Skin: Dry, Normal Color, Warm Lymphatic: No Adenopathy Was a procedure done? Was a procedure done?: No Back Pain Differential Dx Differential Diagnosis: Fracture, Musculoskeletal Pain X-Ray, Labs, Meds, VS Vital Signs Date Time Temp Pulse Resp B/P (MAP) Pulse Ox O2 Delivery O2 Flow Rate FiO2 05/09/25 20:06 98.6 57 16 125/52 (76) 96 98.6 X-Ray, Labs, Meds, VS Comment EXAM: CT CT R HAND WO CONTRAST INDICATION: STATUS POST INJURY POSSIBLE OSTEOMYELITIS EXAM DATE: 05/09/2025 08:47 PM COMPARISON: None TECHNIQUE: Multiple axial CT images of the right hand were obtained using bone algorithm. Axial and coronal reformatting was done. Bone and soft tissue windows were reviewed. Radiation Dose Information: CT Dose: CTDI volume is 7.75 mGy. Dose-length product is 190.58 mGy*cm Findings/Impression: There is no evidence of an acute fracture, dislocation, osseous erosions, blastic, or lytic lesions. No radiopaque foreign bodies. No focal fluid collections or subcutaneous emphysema. If there is high clinical suspicion for osteomyelitis, recommend a contrast- enhanced MRI or nuclear medicine WBC scan for further evaluation. Patient given Rocephin 1 g IM. We will start trial of doxycycline twice daily x7 days. Advised to take medications as prescribed side effects discussed. Advised on rice. Advised to follow up with her PCP in 2 days for wound re- evaluation urgent care or back here in the ER. ER return precautions given patient indicates understanding and agrees with discharge plan of care. Time of 1ST Reevaluation: 20:05 Reevaluation 1ST: Unchanged Time of 2ND Reevaluation: 22:26 Reevaluation 2ND: Improved Patient Education/Counseling: Diagnosis, Treatment, Prognosis, Need For Follow Up Family Education/Counseling: Diagnosis, Treatment, Prognosis, Need For Follow Up SEPSIS Sepsis Screen Physician Orders Ct R Hand Wo Contrast (05/09/25 20:02) Ceftriaxone Sodium (Rocephin) (05/09/25 22:30) Vital Signs Date Time Temp Pulse Resp B/P (MAP) Pulse Ox O2 Delivery O2 Flow Rate FiO2 05/09/25 20:06 98.6 57 16 125/52 (76) 96 98.6 Departure 1 Departure Time of Disposition: 22:25 Impression: Primary Impression: Infected hand Disposition: 01 HOME / SELF CARE / HOMELESS Condition: Stable e-Prescriptions Doxycycline Hyclate (Doxycycline Hyclate) 100 Mg Cap 100 MG PO BID for 7 Days, #14 CAP Prov: ZAYNAB CORNELL 05/09/25 Discharged With: Friend Critical Care Note Critical Care Time?: No Stability Stability form required: ZAYNAB Ag May 09, 2025 20:09
--- NOTE | 2025-05-09 21:29 | DVH ---
EXAM: CT CT R HAND WO CONTRAST INDICATION: STATUS POST INJURY POSSIBLE OSTEOMYELITIS EXAM DATE: 05/09/2025 08:47 PM COMPARISON: None TECHNIQUE: Multiple axial CT images of the right hand were obtained using bone algorithm. Axial and c oronal reformatting was done. Bone and soft tissue windows were reviewed. Radiation Dose Information: CT Dose: CTDI volume is 7.75 mGy. Dose-length product is 190.58 mGy*cm Findings/Impression: There is no evidence of an acute fracture, dislocation, osseous erosions, blastic, or lytic lesions. No radiopaque foreign bodies. No focal fluid collections or subcutaneous emphysema. If there is high clinical suspicion for osteomyelitis, recommend a contrast-enhanced MRI or nuclear m edicine WBC scan for further evaluation.
[2025-05-09] MEDS ORDERED: DOXY100C4 PO (22:26)
[2025-05-09 22:45] VITALS: BP 131/59; PULSE 62; RESP 16; TEMP 98.8; O2SAT 97
[2025-05-09] MEDS: cefTRIAXone SOD 1,000 MG VL IM ONE (22:56)
[2025-05-09] MEDS: LIDOCAINE 1% HCL (LOCAL ANESTH.) INJ 20ML MDV ID ONE (22:56)
== END 2025-05-09 23:05 | disposition home or self-care (01) ==
LOC: ER 19:39
DX: S61.232A Puncture wound without foreign body of right middle finger without damage to nail, initial encounter (principal); E78.5 Hyperlipidemia, unspecified; J45.909 Unspecified asthma, uncomplicated; E03.9 Hypothyroidism, unspecified; Z79.82 Long term (current) use of aspirin; Z79.899 Other long term (current) drug therapy; Z90.89 Acquired absence of other organs; Z98.890 Other specified postprocedural states; Z88.5 Allergy status to narcotic agent; Z88.6 Allergy status to analgesic agent; X58.XXXA Exposure to other specified factors, initial encounter; Y93.89 Activity, other specified; Y92.89 Other specified places as the place of occurrence of the external cause; Y99.8 Other external cause status
CPT/HCPCS: 73200; 96372; 99285; J0696; J2003